=== PATIENT | male | born 1965 | race Hispanic/Latino ===

== ENCOUNTER 2021-05-02 13:34 | Inpatient (IN) | payer OTHER, SELFPAY ==
[2021-05-02] VITALS (100 sets, daily range): BP systolic 78–152; BP diastolic 43–89; PULSE 52–93; RESP 14–35; TEMP 36.4–39.4; O2SAT 92–99; BMI 43.5
--- NOTE | 2021-05-02 13:56 | DI.RAD.S_ITS ---
PROCEDURE: XR CHEST 1V INDICATIONS: suspected sepsis TECHNIQUE: One view of the chest was acquired. COMPARISON: None. FINDINGS: Surgical changes and devices: None. Lungs and pleura: Low lung volumes. Visible lung jasso are clear. No effusion or pneumothorax. Mediastinum: Heart size is accentuated by low lung volumes and is likely normal. Mediastinal contour is normal. Bones and chest wall: No suspicious bony lesions. Overlying soft tissues appear unremarkable. IMPRESSION: 1. Given low lung volumes, normal chest. Dictated by: Livia Da Silva M.D. on 05/02/2021 at 15:37 Approved by: Livia Da Silva M.D. on 05/02/2021 at 15:37
[2021-05-02] MEDS: ONDANSETRON 4 MG/2 ML INJ IV (14:27)
[2021-05-02] MEDS: SODIUM CHLORIDE 0.9% 1,000 ML 1000 ML IV (14:27)
--- NOTE | 2021-05-02 14:28 | DI.RAD.S_ITS ---
PROCEDURE: XR TIBIA FIBULA LT 2V INDICATIONS: r/o osteomyelitis TECHNIQUE: 2 views of the tibia and fibula were acquired. COMPARISON: None. FINDINGS: Bones: No fractures or dislocations. No suspicious bony lesions. Normal mineralization. No cortical erosions changes. Mild degenerative change at the knee and ankle. Soft tissues: No suspicious soft tissue calcifications or masses. IMPRESSION: No radiographic evidence of acute osteomyelitis. Dictated by: Livia Da Silva M.D. on 05/02/2021 at 15:39 Approved by: Livia Da Silva M.D. on 05/02/2021 at 15:40
--- NOTE | 2021-05-02 14:29 | ED.SKABFB ---
HPI - Skin/Abscess/Foreign Bdy <Marbin Nelson PA-C - Last Filed: 05/02/21 14:33> General Chief complaint: Skin/Abscess/Foreign Body Stated complaint: infection Time Seen by Provider: 05/02/21 14:18 Source: patient and family Mode of arrival: Wheelchair History of Present Illness HPI narrative: Patient is a 56-year-old male who presents to the ED complaining of left lower leg pain. He has had a previous infection in that leg where he was treated inpatient with IV vanc in the past. Patient describes an episode of sepsis as a result. Pain has increased in the left lower leg and redness and he is concerned that the infection has come back presents today for evaluation. No reported fever however although he has been taking some Tylenol for aches and pain. He did have some chills today. No reported nausea vomiting diarrhea cough congestion no recent trauma or fall or any other injury reported Related Data Home Medications Medication Instructions Recorded Confirmed lisinopril 20 mg tablet 20 mg PO DAILY 05/02/21 05/02/21 Allergies Allergy/AdvReac Type Severity Reaction Status Date / Time sulfamethoxazole Allergy Verified 05/02/21 18:11 [From Sulfamethoxazole-Trimethoprim] trimethoprim Allergy Verified 05/02/21 18:11 [From Sulfamethoxazole-Trimethoprim] Review of Systems <Marbin Nelson PA-C - Last Filed: 05/02/21 14:33> Review of Systems ROS Unobtainable: All systems reviewed & are unremarkable except as noted in HPI and below Constitutional Constitutional: Denies chills, Denies fatigue, Denies fever(s), Denies frequent falls, Denies lethargy and Denies weakness Eyes Eyes: Denies change in vision, Denies eye discharge, Denies irritation and Denies loss of vision ENT Ears, Nose, Mouth, and Throat: Denies change in voice, Denies dizziness, Denies neck pain, Denies sore throat and Denies throat swelling Cardiovascular Cardiovascular: Denies chest pain, Denies irregular heart rhythm, Denies lightheadedness, Denies palpitations, Denies dyspnea, Denies dyspnea on exertion and Denies orthopnea Respiratory Respiratory: Denies cough, Denies dyspnea, Denies dyspnea on exertion and Denies wheezing Gastrointestinal Gastrointestinal: Denies abdominal pain, Denies change in bowel habits, Denies diarrhea, Denies nausea and Denies vomiting Genitourinary Genitourinary: Denies hematuria, Denies flank pain, Denies urinary incontinence and Denies urinary urgency Musculoskeletal Musculoskeletal: Denies back pain, Reports muscle cramps, Denies muscle weakness, Reports myalgias, Denies neck pain, Denies numbness and Denies tingling Integumentary/Breasts Skin/Breast: Denies pruritus, Denies erythema, Denies rash and Denies wounds Neurologic Neurologic: Denies behavioral changes, Denies confusion, Denies dizziness, Denies frequent falls, Denies loss of vision, Denies numbness, Denies tingling and Denies weakness Psychiatric Psychiatric: Denies anxiety, Denies behavioral changes, Denies confusion, Denies depression, Denies homicidal ideation and Denies suicidal ideation Endocrine Endocrine: Denies fatigue, Denies flushing and Denies palpitations Hematologic/Lymphatic Hematologic/Lymphatic: Denies easy bruising Allergic/Immunologic Allergic/Immunologic: Denies urticaria, Denies throat swelling and Denies wheezing Patient History <Marbin Nelson PA-C - Last Filed: 05/02/21 14:33> Social History household members: spouse Exam <Marbin Nelson PA-C - Last Filed: 05/02/21 14:33> Initial Vital Signs Initial Vital Signs: Vital Signs Temperature 99.4 F 05/02/21 13:45 Pulse Rate 81 05/02/21 13:45 Respiratory Rate 20 05/02/21 13:45 Blood Pressure 136/68 05/02/21 13:45 Pulse Oximetry 99 05/02/21 13:45 Const General: cooperative, healthy appearing, comfortable and well developed Nutritional Appearance: average body habitus Orientation: Orientation [facility] Head: normal to inspection, normocephalic and atraumatic Ears: hearing grossly normal bilaterally and external ears normal Nose: external nose normal and nares normal Face and sinus: normal facial exam Resp Effort & Inspection: normal respiratory effort and able to speak in complete sentences Auscultation: clear to auscultation bilaterally Skin General: other (He has redness on the left lower leg from the knee to the ankle on the ante) Other: There does appear to be some redness along the anterior portion of the left lower leg. No evidence of any acute cellulitis skin is not warm to touch no discharge or any lesions. He does have sock line will have hair loss on both lower legs. No evidence of any edema distal pulses are good cap refills within normal limits <Miya Murrieta DO - Last Filed: 05/03/21 02:56> Initial Vital Signs Initial Vital Signs: Vital Signs Temperature 99.4 F 05/02/21 13:45 Pulse Rate 81 05/02/21 13:45 Respiratory Rate 20 05/02/21 13:45 Blood Pressure 136/68 05/02/21 13:45 Pulse Oximetry 99 05/02/21 13:45 <Miya Murrieta DO - Last Filed: 05/03/21 02:56> Central Line Placement Right IJ: Time Out Performed: Yes Patient Placed on Monitor/Pulse Ox: Yes Prep: mask, gown and gloves Central Line Prep: Chlorhexidine scrub and sterile drapes applied Local Anesthetic: lidocaine 1% Amount of anesthesia used (mL): 5 Ultrasound Used for Placement: Yes Central Line Lumen Inserted: triple Post Procedure: sutured in place, good blood return, all ports aspirated, flushed, capped and sterile dressing applied Post Procedure X-Ray: tip of catheter in good position Patient Tolerated Procedure: Well and No complications Procedural Sedation Consent signed: Yes Ketamine: IV Ketamine dose (mg): 135 Intraservice time/total sedation time (min): 19 ED Sedation Level: Moderate (Concious) Patient Tolerated Procedure: Well Complications: none Course <Marbin Nelson PA-C - Last Filed: 05/02/21 14:33> Orders Ordered: ED Orders 05/02/21 20:42 XR chest 1V Stat 05/02/21 21:03 Lactate (Lactic Acid) Stat 05/02/21 21:17 Troponin & CK Cardiac Panel Stat UA Complete [Urinalysis and Microscopic] Stat Urine Drug Screen, Rapid Stat Acetaminophen (Acetaminophen 325 Mg Tablet) 650 mg PO Q6HR [facility] Last Admin: 05/03/21 01:24 Dose: 650 mg Documented by: Admin: 05/03/21 01:15 Dose: Not Given Documented by: FAHAD Enoxaparin Sodium (Enoxaparin 40 Mg/0.4 Ml Syringe) 40 mg SUBCUT DAILY [facility] NOREPINEPHRINE BITARTRATE/D5W (Levophed) 4 mg in 250 mls @ 30 mls/hr IV TITRATE JESENIA; Protocol Last Titration: 05/03/21 01:22 Dose: 0 mcg/min, 0 mls/hr Documented by: Titration: 05/03/21 00:20 Dose: 1 mcg/min, 3.75 mls/hr Documented by: Titration: 05/02/21 22:10 Dose: 2 mcg/min, 7.5 mls/hr Documented by: Titration: 05/02/21 22:00 Dose: 3 mcg/min, 11.25 mls/hr Documented by: Admin: 05/02/21 19:42 Dose: 3 mcg/min, 11.25 mls/hr Documented by: LOBO Lactated Ringer's (Lactated Ringers) 1,000 mls @ 150 mls/hr IV CONT JESENIA Last Admin: 05/03/21 00:00 Dose: 150 mls/hr Documented by: FAHAD Ceftriaxone Sodium 1,000 mg/ (Sodium Chloride) 100 mls @ 200 mls/hr IV Q24H JESENIA Vancomycin HCl/Dextrose (Vancomycin) 1,500 mg in 300 mls @ 200 mls/hr IV Q8H JESENIA Last Admin: 05/03/21 01:29 Dose: 200 mls/hr Documented by: FAHAD Metoclopramide HCl (Metoclopramide 10 Mg/2 Ml Inj) 10 mg IV Q6HR PRN PRN Reason: Nausea And Vomiting Pantoprazole Sodium (Pantoprazole Dr 40 Mg Tablet) 40 mg PO 0700 JESENIA Tramadol HCl (Tramadol 50 Mg Tablet) 50 mg PO Q4H PRN PRN Reason: Pain, Moderate (4-6) Vancomycin HCl (Vancomycin Per Pharmacy) 1 request MISC NOW ONE Stop: 05/02/21 22:56 Discontinued Medications Sodium Chloride (Normal Saline 0.9%) 1,000 mls @ 1,000 mls/hr IV BOLUS ONE Stop: 05/02/21 14:55 Last Infusion: 05/02/21 15:27 Dose: 0 mls/hr Documented by: Admin: 05/02/21 14:27 Dose: 1,000 mls/hr Documented by: MARIOLA Sodium Chloride (Normal Saline 0.9%) 4,014.3 mls @ 1,338.1 mls/hr 30 ml/kg infuse over 3 hr (4014.3 ml) IV NOW ONE Stop: 05/02/21 19:13 Last Admin: 05/02/21 16:24 Dose: Not Given Documented by: LOBO Sodium Chloride (Normal Saline 0.9%) 2,000 mls @ 1,000 mls/hr IV BOLUS ONE Stop: 05/02/21 18:20 Last Infusion: 05/02/21 22:00 Dose: 0 mls/hr Documented by: Admin: 05/02/21 15:30 Dose: 1,000 mls/hr Documented by: LOBO Vancomycin HCl/Dextrose (Vancomycin) 1,500 mg in 300 mls @ 200 mls/hr IV NOW ONE Stop: 05/02/21 19:18 Last Infusion: 05/02/21 20:17 Dose: 0 mls/hr Documented by: Admin: 05/02/21 18:07 Dose: 200 mls/hr Documented by: LOBO Ceftriaxone Sodium 2,000 mg/ (Sodium Chloride) 100 mls @ 200 mls/hr IV NOW ONE Stop: 05/02/21 21:04 Last Infusion: 05/02/21 22:43 Dose: 0 mls/hr Documented by: Admin: 05/02/21 22:09 Dose: 200 mls/hr Documented by: FAHAD Ibuprofen (Ibuprofen 400 Mg Tablet) 800 mg PO NOW ONE Stop: 05/02/21 15:34 Last Admin: 05/02/21 15:46 Dose: 800 mg Documented by: LOBO Ondansetron HCl (Ondansetron 4 Mg/2 Ml Inj) 4 mg IV NOW ONE Stop: 05/02/21 13:57 Last Admin: 05/02/21 14:27 Dose: 4 mg Documented by: MARIOLA Vital Signs Vital signs: Vital Signs - 8 hr 05/02/21 18:50 05/02/21 19:00 05/02/21 19:06 Pulse Rate 61 59 L 58 L Respiratory Rate 19 25 H 25 H Blood Pressure 78/50 L 86/54 L Pulse Oximetry 96 96 95 05/02/21 19:10 05/02/21 19:20 05/02/21 19:30 Pulse Rate 58 L 61 59 L Respiratory Rate 18 16 19 Blood Pressure 91/52 L 93/55 L Pulse Oximetry 96 96 95 05/02/21 19:40 05/02/21 20:26 05/02/21 20:28 Pulse Rate 61 58 L 57 L Respiratory Rate 20 23 16 Blood Pressure 96/54 L 107/61 146/82 H Pulse Oximetry 95 98 99 05/02/21 20:30 05/02/21 20:32 05/02/21 20:34 Pulse Rate 64 68 71 Respiratory Rate 23 24 30 H Blood Pressure 151/89 H 152/87 H 144/86 H Pulse Oximetry 97 99 99 05/02/21 20:36 05/02/21 20:38 05/02/21 20:40 Pulse Rate 72 69 67 Respiratory Rate 24 27 H 22 Blood Pressure 139/80 142/70 H 129/66 Pulse Oximetry 98 98 98 05/02/21 20:42 05/02/21 20:44 05/02/21 20:46 Pulse Rate 66 65 64 Respiratory Rate 22 16 22 Blood Pressure 129/66 128/69 127/72 Pulse Oximetry 99 98 98 05/02/21 20:47 05/02/21 20:48 05/02/21 20:50 Pulse Rate 61 54 L 59 L Respiratory Rate 20 16 24 Blood Pressure 135/78 130/79 Pulse Oximetry 98 98 05/02/21 20:52 05/02/21 20:54 05/02/21 20:56 Pulse Rate 52 L 54 L 57 L Respiratory Rate 24 24 22 Blood Pressure 126/78 125/75 126/75 Pulse Oximetry 98 98 98 05/02/21 20:58 05/02/21 21:00 05/02/21 21:02 Pulse Rate 58 L 57 L 54 L Respiratory Rate 24 22 20 Blood Pressure 121/73 122/75 117/72 Pulse Oximetry 98 98 98 05/02/21 21:04 05/02/21 21:06 05/02/21 21:08 Pulse Rate 59 L 54 L 52 L Respiratory Rate 22 22 23 Blood Pressure 117/63 116/65 120/64 Pulse Oximetry 98 98 98 05/02/21 21:10 05/02/21 21:12 Pulse Rate 57 L 59 L Respiratory Rate 21 21 Blood Pressure 119/66 119/64 Pulse Oximetry 98 97 <Miya Murrieta, DO - Last Filed: 05/03/21 02:56> Orders Ordered: ED Orders 05/02/21 20:42 XR chest 1V Stat 05/02/21 21:03 Lactate (Lactic Acid) Stat 05/02/21 21:17 Troponin & CK Cardiac Panel Stat UA Complete [Urinalysis and Microscopic] Stat Urine Drug Screen, Rapid Stat Acetaminophen (Acetaminophen 325 Mg Tablet) 650 mg PO Q6HR [facility] Last Admin: 05/03/21 01:24 Dose: 650 mg Documented by: Admin: 05/03/21 01:15 Dose: Not Given Documented by: FAHAD Enoxaparin Sodium (Enoxaparin 40 Mg/0.4 Ml Syringe) 40 mg SUBCUT DAILY [facility] NOREPINEPHRINE BITARTRATE/D5W (Levophed) 4 mg in 250 mls @ 30 mls/hr IV TITRATE JESENIA; Protocol Last Titration: 05/03/21 01:22 Dose: 0 mcg/min, 0 mls/hr Documented by: Titration: 05/03/21 00:20 Dose: 1 mcg/min, 3.75 mls/hr Documented by: Titration: 05/02/21 22:10 Dose: 2 mcg/min, 7.5 mls/hr Documented by: Titration: 05/02/21 22:00 Dose: 3 mcg/min, 11.25 mls/hr Documented by: Admin: 05/02/21 19:42 Dose: 3 mcg/min, 11.25 mls/hr Documented by: LOBO Lactated Ringer's (Lactated Ringers) 1,000 mls @ 150 mls/hr IV CONT [facility] Last Admin: 05/03/21 00:00 Dose: 150 mls/hr Documented by: FAHAD Ceftriaxone Sodium 1,000 mg/ (Sodium Chloride) 100 mls @ 200 mls/hr IV Q24H JESENIA Vancomycin HCl/Dextrose (Vancomycin) 1,500 mg in 300 mls @ 200 mls/hr IV Q8H [facility] Last Admin: 05/03/21 01:29 Dose: 200 mls/hr Documented by: FAHAD Metoclopramide HCl (Metoclopramide 10 Mg/2 Ml Inj) 10 mg IV Q6HR PRN PRN Reason: Nausea And Vomiting Pantoprazole Sodium (Pantoprazole Dr 40 Mg Tablet) 40 mg PO 0700 JESENIA Tramadol HCl (Tramadol 50 Mg Tablet) 50 mg PO Q4H PRN PRN Reason: Pain, Moderate (4-6) Vancomycin HCl (Vancomycin Per Pharmacy) 1 request MISC NOW ONE Stop: 05/02/21 22:56 Discontinued Medications Sodium Chloride (Normal Saline 0.9%) 1,000 mls @ 1,000 mls/hr IV BOLUS ONE Stop: 05/02/21 14:55 Last Infusion: 05/02/21 15:27 Dose: 0 mls/hr Documented by: Admin: 05/02/21 14:27 Dose: 1,000 mls/hr Documented by: MARIOLA Sodium Chloride (Normal Saline 0.9%) 4,014.3 mls @ 1,338.1 mls/hr 30 ml/kg infuse over 3 hr (4014.3 ml) IV NOW ONE Stop: 05/02/21 19:13 Last Admin: 05/02/21 16:24 Dose: Not Given Documented by: LOBO Sodium Chloride (Normal Saline 0.9%) 2,000 mls @ 1,000 mls/hr IV BOLUS ONE Stop: 05/02/21 18:20 Last Infusion: 05/02/21 22:00 Dose: 0 mls/hr Documented by: Admin: 05/02/21 15:30 Dose: 1,000 mls/hr Documented by: LOBO Vancomycin HCl/Dextrose (Vancomycin) 1,500 mg in 300 mls @ 200 mls/hr IV NOW ONE Stop: 05/02/21 19:18 Last Infusion: 05/02/21 20:17 Dose: 0 mls/hr Documented by: Admin: 05/02/21 18:07 Dose: 200 mls/hr Documented by: LBOO Ceftriaxone Sodium 2,000 mg/ (Sodium Chloride) 100 mls @ 200 mls/hr IV NOW ONE Stop: 05/02/21 21:04 Last Infusion: 05/02/21 22:43 Dose: 0 mls/hr Documented by: Admin: 05/02/21 22:09 Dose: 200 mls/hr Documented by: FAHAD Ibuprofen (Ibuprofen 400 Mg Tablet) 800 mg PO NOW ONE Stop: 05/02/21 15:34 Last Admin: 05/02/21 15:46 Dose: 800 mg Documented by: LOBO Ondansetron HCl (Ondansetron 4 Mg/2 Ml Inj) 4 mg IV NOW ONE Stop: 05/02/21 13:57 Last Admin: 05/02/21 14:27 Dose: 4 mg Documented by: MARIOLA Vital Signs Vital signs: Vital Signs - 8 hr 05/02/21 18:50 05/02/21 19:00 05/02/21 19:06 Pulse Rate 61 59 L 58 L Respiratory Rate 19 25 H 25 H Blood Pressure 78/50 L 86/54 L Pulse Oximetry 96 96 95 05/02/21 19:10 05/02/21 19:20 05/02/21 19:30 Pulse Rate 58 L 61 59 L Respiratory Rate 18 16 19 Blood Pressure 91/52 L 93/55 L Pulse Oximetry 96 96 95 05/02/21 19:40 05/02/21 20:26 05/02/21 20:28 Pulse Rate 61 58 L 57 L Respiratory Rate 20 23 16 Blood Pressure 96/54 L 107/61 146/82 H Pulse Oximetry 95 98 99 05/02/21 20:30 05/02/21 20:32 05/02/21 20:34 Pulse Rate 64 68 71 Respiratory Rate 23 24 30 H Blood Pressure 151/89 H 152/87 H 144/86 H Pulse Oximetry 97 99 99 05/02/21 20:36 05/02/21 20:38 05/02/21 20:40 Pulse Rate 72 69 67 Respiratory Rate 24 27 H 22 Blood Pressure 139/80 142/70 H 129/66 Pulse Oximetry 98 98 98 05/02/21 20:42 05/02/21 20:44 05/02/21 20:46 Pulse Rate 66 65 64 Respiratory Rate 22 16 22 Blood Pressure 129/66 128/69 127/72 Pulse Oximetry 99 98 98 05/02/21 20:47 05/02/21 20:48 05/02/21 20:50 Pulse Rate 61 54 L 59 L Respiratory Rate 20 16 24 Blood Pressure 135/78 130/79 Pulse Oximetry 98 98 05/02/21 20:52 05/02/21 20:54 05/02/21 20:56 Pulse Rate 52 L 54 L 57 L Respiratory Rate 24 24 22 Blood Pressure 126/78 125/75 126/75 Pulse Oximetry 98 98 98 05/02/21 20:58 05/02/21 21:00 05/02/21 21:02 Pulse Rate 58 L 57 L 54 L Respiratory Rate 24 22 20 Blood Pressure 121/73 122/75 117/72 Pulse Oximetry 98 98 98 05/02/21 21:04 05/02/21 21:06 05/02/21 21:08 Pulse Rate 59 L 54 L 52 L Respiratory Rate 22 22 23 Blood Pressure 117/63 116/65 120/64 Pulse Oximetry 98 98 98 05/02/21 21:10 05/02/21 21:12 Pulse Rate 57 L 59 L Respiratory Rate 21 Blood Pressure 119/66 119/64 Pulse Oximetry 98 97 MDM - Skin/Abscess/Foreign Bdy <Marbin Nelson PA-C - Last Filed: 05/02/21 14:33> Lab Data Result diagrams: 05/02/21 14:20 05/02/21 14:20 Labs: Lab Results 05/02/21 05/02/21 05/02/21 Range/Units 14:20 14:20 14:20 WBC 9.5 (4.5-11.0) X10^3/uL RBC 4.84 (4.5-5.9) X10^6/uL Hgb 15.1 (13.5-17.5) g/dL Hct 43.5 (41-53) % MCV 89.8 (80-100) fL MCH 31.1 (26-34) PG MCHC 34.7 (30-36) % RDW 13.4 (11.6-14.8) % Plt Count 174 (150-400) X10^3/uL Neut % (Auto) 82.8 H (50-75) % Lymph % (Auto) 7.3 L (25-40) % [place] % (Auto) 9.3 (3-14) % Eos % (Auto) 0.3 L (2-4) % Baso % (Auto) 0.3 (0-2) % Neut # (Auto) 7900 H (0049-9787) /uL Lymph # (Auto) 700 L (6051-5951) /uL [place] # (Auto) 900 (0-900) /uL Eos # (Auto) 0 (0-450) /uL Baso # (Auto) 0 (0-100) /uL Sodium 134 L (137-145) mmol/L Potassium 4.5 (3.4-5.1) mmol/L Chloride 101 (98-107) mmol/L Carbon Dioxide 25 (22-32) mmol/L BUN 15 (9-20) mg/dL Creatinine 0.89 (0.66-1.25) mg/dL Estimated GFR > 60.0 (>60) mL/min BUN/Creatinine Ratio 16.9 (6-22) Glucose 104 H (70-100) mg/dL Lactate 2.2 H (0.7-2.1) mmol/L Calcium 9.2 (8.4-10.2) mg/dL Total Bilirubin 0.7 (0.2-1.3) mg/dL AST 50 (17-59) IU/L ALT 45 (<50) IU/L Alkaline Phosphatase 43 (38-126) U/L Total Protein 8.5 H (6.3-8.2) g/dL Albumin 4.6 (3.5-5.0) g/dL Globulin 3.9 (1.7-4.1) g/dL Albumin/Globulin Ratio 1.2 (1.0-2.8) Lipase 141 (23-300) U/L Procalcitonin 0.24 (<0.5) ng/mL SARS-CoV-2 (PCR) (Negative) 05/02/21 05/02/21 05/02/21 Range/Units 16:11 16:37 21:03 WBC (4.5-11.0) X10^3/uL RBC (4.5-5.9) X10^6/uL Hgb (13.5-17.5) g/dL Hct (41-53) % MCV (80-100) fL MCH (26-34) PG MCHC (30-36) % RDW (11.6-14.8) % Plt Count (150-400) X10^3/uL Neut % (Auto) (50-75) % Lymph % (Auto) (25-40) % [place] % (Auto) (3-14) % Eos % (Auto) (2-4) % Baso % (Auto) (0-2) % Neut # (Auto) (2156-6962) /uL Lymph # (Auto) (2804-9871) /uL [place] # (Auto) (0-900) /uL Eos # (Auto) (0-450) /uL Baso # (Auto) (0-100) /uL Sodium (137-145) mmol/L Potassium (3.4-5.1) mmol/L Chloride (98-107) mmol/L Carbon Dioxide (22-32) mmol/L BUN (9-20) mg/dL Creatinine (0.66-1.25) mg/dL Estimated GFR (>60) mL/min BUN/Creatinine Ratio (6-22) Glucose (70-100) mg/dL Lactate 1.5 1.2 (0.7-2.1) mmol/L Calcium (8.4-10.2) mg/dL Total Bilirubin (0.2-1.3) mg/dL AST (17-59) IU/L ALT (<50) IU/L Alkaline Phosphatase (38-126) U/L Total Protein (6.3-8.2) g/dL Albumin (3.5-5.0) g/dL Globulin (1.7-4.1) g/dL Albumin/Globulin Ratio (1.0-2.8) Lipase (23-300) U/L Procalcitonin (<0.5) ng/mL SARS-CoV-2 (PCR) Negative (Negative) Urine Dip Bedside Urine Glucose Negative Bedside Urine Bilirubin - Negative Bedside Urine Ketone - Negative Urine Specific [place] 1.015 Bedside Urine Occult Blood - Negative Bedside Urine pH 8 Bedside Urine Protein - Negative Bedside Urine Urobilinogen - Negative Bedside Urine Nitrite - Negative Bedside Urine Leukocytes - Negative Esterase <Miya Murrieta, DO - Last Filed: 05/03/21 02:56> Lab Data Labs: Lab Results 05/02/21 05/02/21 05/02/21 Range/Units 14:20 14:20 14:20 WBC 9.5 (4.5-11.0) X10^3/uL RBC 4.84 (4.5-5.9) X10^6/uL Hgb 15.1 (13.5-17.5) g/dL Hct 43.5 (41-53) % MCV 89.8 (80-100) fL MCH 31.1 (26-34) PG MCHC 34.7 (30-36) % RDW 13.4 (11.6-14.8) % Plt Count 174 (150-400) X10^3/uL Neut % (Auto) 82.8 H (50-75) % Lymph % (Auto) 7.3 L (25-40) % [place] % (Auto) 9.3 (3-14) % Eos % (Auto) 0.3 L (2-4) % Baso % (Auto) 0.3 (0-2) % Neut # (Auto) 7900 H (5086-7212) /uL Lymph # (Auto) 700 L (2756-2315) /uL [place] # (Auto) 900 (0-900) /uL Eos # (Auto) 0 (0-450) /uL Baso # (Auto) 0 (0-100) /uL Sodium 134 L (137-145) mmol/L Potassium 4.5 (3.4-5.1) mmol/L Chloride 101 (98-107) mmol/L Carbon Dioxide 25 (22-32) mmol/L BUN 15 (9-20) mg/dL Creatinine 0.89 (0.66-1.25) mg/dL Estimated GFR > 60.0 (>60) mL/min BUN/Creatinine Ratio 16.9 (6-22) Glucose 104 H (70-100) mg/dL Lactate 2.2 H (0.7-2.1) mmol/L Calcium 9.2 (8.4-10.2) mg/dL Total Bilirubin 0.7 (0.2-1.3) mg/dL AST 50 (17-59) IU/L ALT 45 (<50) IU/L Alkaline Phosphatase 43 (38-126) U/L Total Protein 8.5 H (6.3-8.2) g/dL Albumin 4.6 (3.5-5.0) g/dL Globulin 3.9 (1.7-4.1) g/dL Albumin/Globulin Ratio 1.2 (1.0-2.8) Lipase 141 (23-300) U/L Procalcitonin 0.24 (<0.5) ng/mL SARS-CoV-2 (PCR) (Negative) 05/02/21 05/02/21 05/02/21 Range/Units 16:11 16:37 21:03 WBC (4.5-11.0) X10^3/uL RBC (4.5-5.9) X10^6/uL Hgb (13.5-17.5) g/dL Hct (41-53) % MCV (80-100) fL MCH (26-34) PG MCHC (30-36) % RDW (11.6-14.8) % Plt Count (150-400) X10^3/uL Neut % (Auto) (50-75) % Lymph % (Auto) (25-40) % [place] % (Auto) (3-14) % Eos % (Auto) (2-4) % Baso % (Auto) (0-2) % Neut # (Auto) (8734-3228) /uL Lymph # (Auto) (2800-5079) /uL [place] # (Auto) (0-900) /uL Eos # (Auto) (0-450) /uL Baso # (Auto) (0-100) /uL Sodium (137-145) mmol/L Potassium (3.4-5.1) mmol/L Chloride (98-107) mmol/L Carbon Dioxide (22-32) mmol/L BUN (9-20) mg/dL Creatinine (0.66-1.25) mg/dL Estimated GFR (>60) mL/min BUN/Creatinine Ratio (6-22) Glucose (70-100) mg/dL Lactate 1.5 1.2 (0.7-2.1) mmol/L Calcium (8.4-10.2) mg/dL Total Bilirubin (0.2-1.3) mg/dL AST (17-59) IU/L ALT (<50) IU/L Alkaline Phosphatase (38-126) U/L Total Protein (6.3-8.2) g/dL Albumin (3.5-5.0) g/dL Globulin (1.7-4.1) g/dL Albumin/Globulin Ratio (1.0-2.8) Lipase (23-300) U/L Procalcitonin (<0.5) ng/mL SARS-CoV-2 (PCR) Negative (Negative) Urine Dip Bedside Urine Glucose Negative Bedside Urine Bilirubin - Negative Bedside Urine Ketone - Negative Urine Specific [place] 1.015 Bedside Urine Occult Blood - Negative Bedside Urine pH 8 Bedside Urine Protein - Negative Bedside Urine Urobilinogen - Negative Bedside Urine Nitrite - Negative Bedside Urine Leukocytes - Negative Esterase Imaging Data Chest x-ray: Radiologist's Impression: PROCEDURE:? XR CHEST 1V ? INDICATIONS:? suspected sepsis ? TECHNIQUE:? One view of the chest was acquired.? ? COMPARISON:? None. ? FINDINGS:? ? Surgical changes and devices:? None.? ? Lungs and pleura:? Low lung volumes.? Visible lung jasso are clear.? No effusion or pneumothorax. ? Mediastinum:? Heart size is accentuated by low lung volumes and is likely normal.? Mediastinal contour is normal. ? Bones and chest wall:? No suspicious bony lesions.? Overlying soft tissues appear unremarkable.? ? IMPRESSION:? ? 1. Given low lung volumes, normal chest.? ? ? Dictated by: Livia Da Silva M.D. on 05/02/2021 at 15:37 ? ? Extremity x-ray #1: Radiologist's Impression: PROCEDURE:? XR TIBIA FIBULA LT 2V ? INDICATIONS:? r/o osteomyelitis ? TECHNIQUE:? 2 views of the tibia and fibula were acquired.? ? COMPARISON:? None. ? FINDINGS:? ? Bones:? No fractures or dislocations.? No suspicious bony lesions.? Normal mineralization.? No cortical erosions changes.? Mild degenerative change at the knee and ankle. ? Soft tissues:? No suspicious soft tissue calcifications or masses.? ? IMPRESSION:? No radiographic evidence of acute osteomyelitis.? ? ? Dictated by: Livia Da Silva M.D. on 05/02/2021 at 15:39 ? CXR #2: Radiologist's Impression: PROCEDURE:? XR CHEST 1V ? INDICATIONS:? central line placement ? TECHNIQUE:? One view of the chest was acquired.? ? COMPARISON:? [facility], , XR CHEST 1V, 05/02/2021, 14:24. ? FINDINGS:? ? Surgical changes and devices:? There is a new right internal jugular catheter with the tip projecting over the superior vena cava. ? Lungs and pleura:? No definite pneumothorax.? No pleural effusions.? There is motion artifact limiting evaluation of the lungs.? No definite acute consolidation. ? Mediastinum:? Mediastinal contours appear prominent likely due to low lung volumes and portable technique.? Heart size is enlarged. ? Bones and chest wall:? No suspicious bony lesions.? Overlying soft tissues appear unremarkable.? ? IMPRESSION:? ? 1. No definite pneumothorax. ? ? Dictated by: Gilles Pandey M.D. on 05/02/2021 at 21:32 ? ? ECG Data Interpretation: Normal sinus rhythm rate 81 MT interval 170 QRS [address] changes, no priors MDM Narrative Medical decision making narrative: I was asked to get involved is when patient was attempted to be admitted is to the hospitalist and realized that patient's blood pressure has been low as and requested central line be placed. I have seen and evaluated patient myself. He overall appears weak and lethargic but is awake alert responsive. Left lower extremity is mildly erythematous and swollen slightly tender to touch with a distal pedal pulse. As the patient says he has previously had infections like this in past in fact he was admitted at [facility]. He says his blood pressures were in the 80s at that time and he was given IV fluids and closely monitored. The patient's blood work overall appears well however patient himself does not appear well and he is becoming more hypotensive during his stay despite IV fluid. Patient actually qualifies as septic shock. No infection in urine is clear as well. He has no other signs or symptoms. Patient is given a dose of vancomycin I have also ordered a dose of Rocephin. His central line is placed. Patient is extremely anxious and has fear of needles ketamine is used for procedure sedation for central line placement. Patient tolerated procedure very well and central line was placed without issue. Patient initially was started on peripheral Levophed and 1 central line was placed and was started on the central line. Discussed case with Remedios ALBA who is updated patient's symptoms test results increase with ICU admission. <Miya Murrieta, - Last Filed: 05/03/21 02:56> Critical Care Time Critical Care Time: Yes Total Critical Care Time: 30 Attestation: The high probability of a clinically significant, sudden or life threatening deterioration of the [cardiovascular] system(s) required my full and direct attention, intervention and personal management. The aggregate critical care time was 30 minutes. This time is in addition to time spent performing reported procedures but includes the following: [x] Data Review and interpretation [x] Patient assessment and monitoring of vital signs [x] Documentation [x] Medication orders and management Discharge Plan Departure Patient Disposition: Admitted As Inpatient Clinical Impression: Septic shock, Left leg cellulitis Admit Date/Time: 05/02/21 21:12 Admit Provider: Meenu Garg
[2021-05-02 14:32] LABS: Add Manual Diff / Slide Review NO; Basophils Absolute Auto 0 /uL (0-100); Basophils Percent Auto 0.3 % (0-2); Eosinophils Absolute Auto 0 /uL (0-450); Eosinophils Percent Auto 0.3 % (2-4); Hematocrit 43.5 % (41-53); Hemoglobin 15.1 g/dL (13.5-17.5); Lymphocytes Absolute Auto 700 /uL (1100-4500); Lymphocytes Percent Auto 7.3 % (25-40); Mean Corpuscular HGB Conc 34.7 % (30-36); Mean Corpuscular Hemoglobin 31.1 PG (26-34); Mean Corpuscular Volume 89.8 fL (80-100); Monocytes Absolute Auto 900 /uL (0-900); Monocytes Percent Auto 9.3 % (3-14); Neutrophils Absolute Auto 7900 /uL (1500-7000); Neutrophils Percent Auto 82.8 % (50-75); Platelet Count 174 X10^3/uL (150-400); Red Blood Cell Count 4.84 X10^6/uL (4.5-5.9); Red Cell Distribution Width 13.4 % (11.6-14.8); White Blood Cell Count 9.5 X10^3/uL (4.5-11.0)
[2021-05-02 14:42] LABS: Lactate (Lactic Acid) 2.2 mmol/L (0.7-2.1)
[2021-05-02 14:43] LABS: Alanine Aminotransferase 45 IU/L (<50); Albumin 4.6 g/dL (3.5-5.0); Albumin Globulin Ratio 1.2 (1.0-2.8); Alkaline Phosphatase 43 U/L (38-126); Aspartate Aminotransferase 50 IU/L (17-59); BUN Creatinine Ratio 16.9 (6-22); Bilirubin Total 0.7 mg/dL (0.2-1.3); Blood Urea Nitrogen 15 mg/dL (9-20); Calcium 9.2 mg/dL (8.4-10.2); Carbon Dioxide 25 mmol/L (22-32); Chloride 101 mmol/L (98-107); Estimated Glomerular Filt Rate > 60.0 mL/min (>60); Globulin 3.9 g/dL (1.7-4.1); Glucose 104 mg/dL (70-100); HEMOLYSIS < 15 (0-50); Lipase 141 U/L (23-300); Potassium 4.5 mmol/L (3.4-5.1); Sodium 134 mmol/L (137-145); Total Protein 8.5 g/dL (6.3-8.2)
[2021-05-02 14:59] LABS: Procalcitonin 0.24 ng/mL (<0.5)
[2021-05-02] MEDS: SODIUM CHLORIDE 0.9% 2,000 ML 1000 ML IV (15:30)
[2021-05-02] MEDS: IBUPROFEN 400 MG TABLET 800 MG PO (15:46)
[2021-05-02 16:26] LABS: Reflexed Lactate in 2 Hours Y
[2021-05-02 16:41] LABS: COVID19 -Nasal RAPID Negative (Negative)
[2021-05-02 16:52] LABS: Lactate 2HR (Lactic Acid Rflx) 1.5 mmol/L (0.7-2.1)
[2021-05-02] MEDS: VANCOMYCIN 1,500 MG/300 ML PIGGYBACK 200 MG IV (18:07)
[2021-05-02] MEDS: NOREPINEPHRINE BITARTRATE/D5W 4 MG/250 ML PLAST..BAG 8 MG IV (19:00)
[2021-05-02] MEDS: NOREPINEPHRINE BITARTRATE/D5W 4 MG/250 ML PLAST..BAG 11.25 MG IV (19:42)
[2021-05-02] MEDS: KETAMINE 500 MG/5 ML INJ (20:16)
--- NOTE | 2021-05-02 20:42 | DI.RAD.S_ITS ---
PROCEDURE: XR CHEST 1V INDICATIONS: central line placement TECHNIQUE: One view of the chest was acquired. COMPARISON: [facility], , XR CHEST 1V, 05/02/2021, 14:24. FINDINGS: Surgical changes and devices: There is a new right internal jugular catheter with the tip projecting over the superior vena cava. Lungs and pleura: No definite pneumothorax. No pleural effusions. There is motion artifact limiting evaluation of the lungs. No definite acute consolidation. Mediastinum: Mediastinal contours appear prominent likely due to low lung volumes and portable technique. Heart size is enlarged. Bones and chest wall: No suspicious bony lesions. Overlying soft tissues appear unremarkable. IMPRESSION: 1. No definite pneumothorax. Dictated by: Gilles Pandey M.D. on 05/02/2021 at 21:32 Approved by: Gilles Pandey M.D. on 05/02/2021 at 21:42
[2021-05-02 21:21] LABS: Lactate (Lactic Acid) 1.2 mmol/L (0.7-2.1)
[2021-05-02 21:27] LABS: UR Morphine/Opiate cutoff 300 Negative (Negative); Ur Creatinine Normal (Normal); Ur Specific Gravity Normal (Normal); Urine Amphetamines Negative (Negative); Urine Barbiturates Negative (Negative); Urine Benzodiazepines Negative (Negative); Urine Cocaine Negative (Negative); Urine MDMA Negative (Negative); Urine Methadone Negative (Negative); Urine Methamphetamines Negative (Negative); Urine Oxycodone Negative (Negative); Urine Phencyclidine Negative (Negative); Urine Tetrahydrocannabinol Negative (Negative); Urine Tricyclic Antidepressant Negative (Negative); Urine pH Normal (Normal)
[2021-05-02 21:32] LABS: Appearance Urine UA CLEAR; Bilirubin Urine UA NEGATIVE (NEGATIVE); Color Urine UA YELLOW; Glucose Urine UA NEGATIVE (Negative); Ketones Urine UA NEGATIVE (NEGATIVE); Leukocyte Esterase Urine UA NEGATIVE (NEGATIVE); Nitrite Urine UA NEGATIVE (Negative); Occult Blood Urine UA NEGATIVE (Negative); Protein Urine UA NEGATIVE (Negative); Specific Gravity Urine UA <=1.005 (1.000-1.035); Urobilinogen Urine UA 0.2 E.U./dL (0.2); pH Urine UA 6.5 (4.5-8.0)
[2021-05-02 21:33] LABS: Bacteria Urine None Seen; Culture Indicated Urine Cult Not Indicated; RBC Urine None Seen (0-5/HPF); Squamous Epithelial Cell Urine 0-1 /HPF (0-5/HPF); Urine Comments Microscopic Normal; WBC Urine None Seen (0-5/HPF)
[2021-05-02 21:40] LABS: Creatine Kinase 295 U/L (55-170)
[2021-05-02 21:53] LABS: Troponin I < 0.012 ng/mL (0.01-0.034)
[2021-05-02 21:56] LABS: CKMB % Relative Index 0.3 % (1.5-5.0); Creatine Kinase MB 0.74 ng/mL (<2.37)
[2021-05-02] MEDS: cefTRIAXone 2,000 MG in SODIUM CHLORIDE 0.9% 100 ML 200 ML IV (22:09)
--- NOTE | 2021-05-02 22:57 | PM.HP.1 ---
History of Present Illness History of Present Illness Date Patient Seen: 05/02/21 Time Patient Seen: 22:57 Chief complaint: infection Narrative: Terrance Cooper is a 56 y.o. male visiting from [place] who developed lower left leg pain and redness in that area. He states he was out hiking around and felt something sting him in the back of the leg that he felt might have been a piece of twig or branch. The patient is concerned because he has a history of developing sepsis and being hospitalized at [facility] in February of this year and being treated for the same thing. 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 He denies fever sweats or chills though per the ED was taking Tylenol for aches and pains, he did endorse having chills today, denies shortness of breath, chest pain, nausea or vomiting, dysuria, diarrhea constipation. In the emergency department the patient was initiated on antibiotics and during that time his blood pressure dropped precipitously low. After repeated boluses a decision was made to place a central line into the patient and required ketamine for sedation. He was eventually put on a norepinephrine drip and admitted to the ICU. About mid evening the patient was taken off the Levophed drip due to his blood pressure normalizing. X-ray was negative for any acute cardiopulmonary process. x-ray of the tib him did not identify any fractures, dislocations, soft tissue masses or abscesses or evidence of acute osteomyelitis. Repeat chest x-ray to verify central line was negative for any pneumothorax or abnormalities. Patient's T-max was 103?. Blood pressure is currently 140/64, heart rate 61, respiratory rate 23, oxygen saturation of 97% on room air, he weighs 140 kg with a BMI of 43.5. Does not have white count, D-dimer is mildly elevated at 803 however hit falls within the range of a possible DVT sodium 134, glucose 104, total CK was 295, is a normal troponin, procalcitonin was 0.24, UA was negative for UTI, MRSA is negative, and COVID-19 PCR is negative. Patient History Medical History (Updated 05/03/21 @ 04:22 by ANJALI Kenney) Abdominal aortic aneurysm Aortic dissection Essential hypertension History of pulmonary embolism Low HDL (under 40) Morbid obesity with BMI of 40.0-44.9, adult Surgical History (Updated 05/03/21 @ 04:22 by ANJALI Kenney) History of abdominal aortic aneurysm repair Family & Social History Family History (Updated 05/03/21 @ 04:27 by ANJALI Kenney) Mother Pancreatic cancer Father Vascular disease Son PTSD (post-traumatic stress disorder) Social History: household members spouse Prior Living Arrangements House Safety & Behavioral: Feels Safe in Current No Environment Been Physically Hurt or No Threatened By a Person Suicidal Ideation Description None Suicide Plan Description No Plan Tobacco & Substance use: Substance Use Type does not use Comment: Patient's father's side of the family who are from [facility] are stated to have significant vascular issues. Meds Home Medications and Allergies Home Medications Medication Instructions Recorded Confirmed Type lisinopril 20 mg tablet 20 mg PO DAILY 05/02/21 05/02/21 History Allergies Allergy/AdvReac Type Severity Reaction Status Date / Time sulfamethoxazole Allergy Verified 05/02/21 18:11 [From Sulfamethoxazole-Trimethoprim] trimethoprim Allergy Verified 05/02/21 18:11 [From Sulfamethoxazole-Trimethoprim] Review of Systems Review of Systems ROS: Yes All systems reviewed with the patient and are negative except as otherwise documented Exam Vital Signs (past 8 hours): - 05/02/21 15:00 05/02/21 15:14 05/02/21 15:15 Temperature Pulse Rate 78 88 77 Respiratory Rate Blood Pressure 86/54 L 88/55 L Pulse Oximetry 97 98 97 05/02/21 15:21 05/02/21 15:26 05/02/21 15:30 Temperature 103 F H Pulse Rate 77 76 79 Respiratory Rate 35 H 14 15 Blood Pressure 78/43 L 90/61 Pulse Oximetry 97 98 97 05/02/21 15:32 05/02/21 15:41 05/02/21 15:45 Temperature Pulse Rate 78 78 79 Respiratory Rate 16 24 19 Blood Pressure 91/52 L 119/57 L 102/51 L Pulse Oximetry 98 97 97 05/02/21 15:46 05/02/21 15:50 05/02/21 16:00 Temperature 103 F H Pulse Rate 84 81 Respiratory Rate 25 H 27 H Blood Pressure 96/56 L Pulse Oximetry 98 96 05/02/21 16:08 05/02/21 16:10 05/02/21 16:15 Temperature Pulse Rate 77 81 79 Respiratory Rate 16 24 19 Blood Pressure 111/57 L 117/57 L Pulse Oximetry 97 96 96 05/02/21 16:20 05/02/21 16:30 05/02/21 16:31 Temperature Pulse Rate 84 81 79 Respiratory Rate 24 22 15 Blood Pressure 120/56 L Pulse Oximetry 97 96 96 05/02/21 16:40 05/02/21 16:45 05/02/21 16:50 Temperature Pulse Rate 81 77 80 Respiratory Rate 24 25 H 24 Blood Pressure 99/50 L Pulse Oximetry 94 94 92 05/02/21 17:00 05/02/21 17:10 05/02/21 17:11 Temperature 100.5 F H Pulse Rate 75 82 Respiratory Rate 22 24 Blood Pressure 90/52 L Pulse Oximetry 94 94 05/02/21 17:16 05/02/21 17:20 05/02/21 17:30 Temperature Pulse Rate 82 76 73 Respiratory Rate 24 24 25 H Blood Pressure 98/49 L 95/53 L Pulse Oximetry 94 93 94 05/02/21 17:40 05/02/21 17:45 05/02/21 17:50 Temperature Pulse Rate 93 H 73 66 Respiratory Rate 24 18 24 Blood Pressure 102/55 L Pulse Oximetry 94 94 92 05/02/21 18:00 05/02/21 18:10 05/02/21 18:15 Temperature Pulse Rate 67 72 71 Respiratory Rate 26 H 18 16 Blood Pressure 81/48 L 97/55 L Pulse Oximetry 96 95 95 05/02/21 18:20 05/02/21 18:30 05/02/21 18:38 Temperature Pulse Rate 72 67 66 Respiratory Rate 25 H 22 22 Blood Pressure 93/51 L 91/54 L Pulse Oximetry 95 95 95 05/02/21 18:40 05/02/21 18:50 05/02/21 19:00 Temperature Pulse Rate 67 61 59 L Respiratory Rate 24 19 25 H Blood Pressure 78/50 L Pulse Oximetry 96 96 05/02/21 19:06 05/02/21 19:10 05/02/21 19:20 Temperature Pulse Rate 58 L 58 L 61 Respiratory Rate 25 H 18 16 Blood Pressure 86/54 L 91/52 L Pulse Oximetry 95 96 96 05/02/21 19:30 05/02/21 19:40 05/02/21 20:26 Temperature Pulse Rate 59 L 61 58 L Respiratory Rate 19 20 23 Blood Pressure 93/55 L 96/54 L 107/61 Pulse Oximetry 95 95 98 05/02/21 20:28 05/02/21 20:30 05/02/21 20:32 Temperature Pulse Rate 57 L 64 68 Respiratory Rate 16 23 24 Blood Pressure 146/82 H 151/89 H 152/87 H Pulse Oximetry 99 97 99 05/02/21 20:34 05/02/21 20:36 05/02/21 20:38 Temperature Pulse Rate 71 72 69 Respiratory Rate 30 H 24 27 H Blood Pressure 144/86 H 139/80 142/70 H Pulse Oximetry 99 98 98 05/02/21 20:40 05/02/21 20:42 05/02/21 20:44 Temperature Pulse Rate 67 66 65 Respiratory Rate 22 22 16 Blood Pressure 129/66 129/66 128/69 Pulse Oximetry 98 99 98 05/02/21 20:46 05/02/21 20:47 05/02/21 20:48 Temperature Pulse Rate 64 61 54 L Respiratory Rate 22 20 16 Blood Pressure 127/72 135/78 Pulse Oximetry 98 98 05/02/21 20:50 05/02/21 20:52 05/02/21 20:54 Temperature Pulse Rate 59 L 52 L 54 L Respiratory Rate 24 24 24 Blood Pressure 130/79 126/78 125/75 Pulse Oximetry 98 98 98 05/02/21 20:56 05/02/21 20:58 05/02/21 21:00 Temperature Pulse Rate 57 L 58 L 57 L Respiratory Rate 22 24 22 Blood Pressure 126/75 121/73 122/75 Pulse Oximetry 98 98 98 05/02/21 21:02 05/02/21 21:04 05/02/21 21:06 Temperature Pulse Rate 54 L 59 L 54 L Respiratory Rate 20 22 22 Blood Pressure 117/72 117/63 116/65 Pulse Oximetry 98 98 98 05/02/21 21:08 05/02/21 21:10 05/02/21 21:12 Temperature Pulse Rate 52 L 57 L 59 L Respiratory Rate 23 21 21 Blood Pressure 120/64 119/66 119/64 Pulse Oximetry 98 98 97 05/02/21 21:14 05/02/21 21:16 05/02/21 21:18 Temperature Pulse Rate 62 62 59 L Respiratory Rate 18 16 24 Blood Pressure 109/61 108/62 105/61 Pulse Oximetry 97 97 96 05/02/21 21:20 05/02/21 21:25 05/02/21 21:30 Temperature Pulse Rate 57 L 60 61 Respiratory Rate 18 23 16 Blood Pressure 113/62 112/63 112/63 Pulse Oximetry 96 96 96 05/02/21 21:34 05/02/21 21:35 05/02/21 21:40 Temperature 98.5 F Pulse Rate 60 59 L Respiratory Rate 19 15 Blood Pressure 112/62 107/57 L Pulse Oximetry 97 96 05/02/21 21:50 05/02/21 21:54 Temperature 97.5 F L Pulse Rate 62 61 Respiratory Rate 23 20 Blood Pressure 121/70 105/58 L Pulse Oximetry 96 96 Oxygen Delivery Method Room Air Oxygen Flow Rate 0 Narrative Exam Narrative: Gen: Alert, oriented, morbidly obese 56 y.o. /[place] male, a bit drowsy HEENT: normocephalic, atraumatic, conjunctiva clear, sclera non-icteric, oral mucosa pink and moist Neck: supple, full ROM, no JVD, trachea is midline Resp: Lungs CTA, non-labored breathing CV: RRR, no murmur or rubs Abd: soft, non-tender, normoactive BTs Skin: no lesions or rashes, dry and intact Neuro: Lethargic, but alert and oriented X 4 w/no focal deficits. Speech clear and coherent. Extremities: Left lower leg is erythematous and dark and has point tenderness set a specific point in his posterior upper calf that feels like the same area where he states was poked while he was out hiking. Moves all 4 extremities, is ambulatory, negative Sylvain?s sign Psyche: normal mood and affect. Objective Labs Result Diagrams: 05/02/21 14:20 05/02/21 14:20 Labs: Laboratory Results - last 24 hr 05/02/21 05/02/21 05/02/21 14:20 14:20 14:20 WBC 9.5 RBC 4.84 Hgb 15.1 Hct 43.5 MCV 89.8 MCH 31.1 MCHC 34.7 RDW 13.4 Plt Count 174 Neut % (Auto) 82.8 H Lymph % (Auto) 7.3 L [place] % (Auto) 9.3 Eos % (Auto) 0.3 L Baso % (Auto) 0.3 Neut # (Auto) 7900 H Lymph # (Auto) 700 L [place] # (Auto) 900 Eos # (Auto) 0 Baso # (Auto) 0 Sodium 134 L Potassium 4.5 Chloride 101 Carbon Dioxide 25 BUN 15 Creatinine 0.89 Estimated GFR > 60.0 BUN/Creatinine Ratio 16.9 Glucose 104 H Lactate 2.2 H Calcium 9.2 Total Bilirubin 0.7 AST 50 ALT 45 Alkaline Phosphatase 43 Total Creatine Kinase CK-MB (CK-2) CK-MB (CK-2) Rel Index Troponin I Total Protein 8.5 H Albumin 4.6 Globulin 3.9 Albumin/Globulin Ratio 1.2 Lipase 141 Procalcitonin 0.24 Urine Color Urine Appearance Urine pH Ur Specific [place] Urine Protein Urine Glucose (UA) Urine Ketones Urine Occult Blood Urine Nitrate Urine Bilirubin Urine Urobilinogen Ur Leukocyte Esterase Urine RBC Urine WBC Ur Squamous Epith Cells Urine Bacteria Ur Culture Indicated? Micro UA Comment U Opiates 300ng/mL cut Ur Oxycodone Screen Urine Methadone Screen Ur Barbiturates Screen U Tricyclic Antidepress Ur Phencyclidine Scrn Ur Amphetamines Screen U Methamphetamines Scrn Ur MDMA Scrn (Ecstasy) U Benzodiazepines Scrn Urine Cocaine Screen U Marijuana (THC) Screen SARS-CoV-2 (PCR) 05/02/21 05/02/21 05/02/21 16:11 16:37 21:03 WBC RBC Hgb Hct MCV MCH MCHC RDW Plt Count Neut % (Auto) Lymph % (Auto) [place] % (Auto) Eos % (Auto) Baso % (Auto) Neut # (Auto) Lymph # (Auto) [place] # (Auto) Eos # (Auto) Baso # (Auto) Sodium Potassium Chloride Carbon Dioxide BUN Creatinine Estimated GFR BUN/Creatinine Ratio Glucose Lactate 1.5 1.2 Calcium Total Bilirubin AST ALT Alkaline Phosphatase Total Creatine Kinase CK-MB (CK-2) CK-MB (CK-2) Rel Index Troponin I Total Protein Albumin Globulin Albumin/Globulin Ratio Lipase Procalcitonin Urine Color Urine Appearance Urine pH Ur Specific [place] Urine Protein Urine Glucose (UA) Urine Ketones Urine Occult Blood Urine Nitrate Urine Bilirubin Urine Urobilinogen Ur Leukocyte Esterase Urine RBC Urine WBC Ur Squamous Epith Cells Urine Bacteria Ur Culture Indicated? Micro UA Comment U Opiates 300ng/mL cut Ur Oxycodone Screen Urine Methadone Screen Ur Barbiturates Screen U Tricyclic Antidepress Ur Phencyclidine Scrn Ur Amphetamines Screen U Methamphetamines Scrn Ur MDMA Scrn (Ecstasy) U Benzodiazepines Scrn Urine Cocaine Screen U Marijuana (THC) Screen SARS-CoV-2 (PCR) Negative 05/02/21 05/02/21 05/02/21 21:17 21:17 21:17 WBC RBC Hgb Hct MCV MCH MCHC RDW Plt Count Neut % (Auto) Lymph % (Auto) [place] % (Auto) Eos % (Auto) Baso % (Auto) Neut # (Auto) Lymph # (Auto) [place] # (Auto) Eos # (Auto) Baso # (Auto) Sodium Potassium Chloride Carbon Dioxide BUN Creatinine Estimated GFR BUN/Creatinine Ratio Glucose Lactate Calcium Total Bilirubin AST ALT Alkaline Phosphatase Total Creatine Kinase 295 H CK-MB (CK-2) 0.74 CK-MB (CK-2) Rel Index 0.3 L Troponin I < 0.012 Total Protein Albumin Globulin Albumin/Globulin Ratio Lipase Procalcitonin Urine Color Yellow Urine Appearance Clear Urine pH 6.5 Ur Specific [place] <=1.005 Urine Protein Negative Urine Glucose (UA) Negative Urine Ketones Negative Urine Occult Blood Negative Urine Nitrate Negative Urine Bilirubin Negative Urine Urobilinogen 0.2 Ur Leukocyte Esterase Negative Urine RBC None seen Urine WBC None seen Ur Squamous Epith Cells 0-1 /hpf Urine Bacteria None seen Ur Culture Indicated? Cult not indicated Micro UA Comment Microscopic normal U Opiates 300ng/mL cut Negative Ur Oxycodone Screen Negative Urine Methadone Screen Negative Ur Barbiturates Screen Negative U Tricyclic Antidepress Negative Ur Phencyclidine Scrn Negative Ur Amphetamines Screen Negative U Methamphetamines Scrn Negative Ur MDMA Scrn (Ecstasy) Negative U Benzodiazepines Scrn Negative Urine Cocaine Screen Negative U Marijuana (THC) Screen Negative SARS-CoV-2 (PCR) Assessment & Plan Assessment & Plan narrative: Robert Cooper is a 56-year-old morbidly obese male with some significant cardiac risk factors is admitted for sepsis associated with a left lower calf cellulitis. 1. Sepsis in the setting of Left lower calf cellulitis, acute, present on admission Patient was administered IV ceftriaxone and this will continue Patient has a history of MRSA and was initially administered vancomycin 2. Hypotension in the setting of sepsis versus response to ketamine administration Patient had a Levophed drip which is now been discontinued due to normalization of his blood pressures 3. History of MRSA His PCR swab is negative and vancomycin is now discontinued 4. Essential hypertension, chronic If his blood pressure holds, he will be resumed on his home dose of lisinopril 5. History of bilateral PE D-dimer was 802, possible DVT/PE He is ordered for a duplex ultrasound of both lower extremities to rule out a DVT He is currently on prophylaxis for DVT VTE Prophylaxis: Wells risk score 1.5Enoxaparin 40 mg subQ once daily right-sided SCD Patient is admitted to the intensive care unit due to the severity of disease, risks of further disease progression and this stay is expected to exceed 2 midnights. FEN: IV fluids: Normal saline at 125 mL/hour diet: Heart healthy, labs: CBC, C/BMP, liver enzymes, Mag, Consultants intercept ICU involvement appreciated Dispo: Probable discharge to home Code status: Full codeas discussed with the patient who identifies his , Damaris his surrogate and POA. [X] I have utilized all available immediate resources to obtain, update, or review of the patient's current medications VTE on admission study is pending. COVID-19 COVID-19 status: Negative Result date/Date tested (Pos, Neg/Pending): 05/03/21 Scores Wells' Criteria for PE Clinical signs and symptoms of DVT: No PE is #1 Dx or equally likely: No Heart rate > 100: No Immobilization at least 3 days or surg in previous 4 weeks: No History of PE or DVT: Yes Hemoptysis: No Malignancy w/Treatment within 6 months or palliative: No Wells' PE Score total: 1.5 Quality MIPS - Admit I confirm the patient?s Advance Care Plan is present, Code status is documented, Surrogate decision maker is in patient?s record [If Yes, STOP here]: Yes MIPS - DC The patient has current or prior documentation of left ventricular ejection fraction (LVEF) less than 40%, or moderate or severely depressed left ventricular systolic function.: No
--- NOTE | 2021-05-02 23:26 | PC.ADMIT ---
Addendum entered by Laura Grullon R.N. 05/03/21 05:42: 0400-Pt requesting to get OOB, c/o needing a change of position Bp lower than last check, Pt persistant about not using BSC. Able to dangle for extended time at bedside. With staff standing by stood without dizziness and ambulated to BR. Continues to be comfortable, no chest pain, no drop in BP. Pt up to recliner , with legs elevated to sleep. Call light in reach. Update given to via phone. IJ infusing to R neck. PIV x2 SL. Last BP 107/55 Labs drawn via Central line. Norepi remains off. Addendum entered by Laura Grullon R.N. 05/03/21 01:52: 0140-NOrepi off, VSS last BP 133/60, Pt more alert, given APAP for GARCIA. Update given to via phone. Addendum entered by Laura Grullon R.N. 05/03/21 00:18: Pt reports pain is controlled at present, declines pain medication. Cooperative with all care. Temp normal. Norepi titrated down to 1mcg/min Original Note: [address] [place] Admission Note:Pt arrived via stretcher and transferred with slider board, reports being out of it from Ketamine given in ER. [place] at bedside. Able to provide through admission. Pt is significantly more alert as assessment completed. Able to make needs known. R IJ in place, and PIV x2. Arrives on Norepi @ 3mcg/min, reduced to 2on arrival. BP 110's/60's with MAP > 70. Denies nausea, skin check completed with Ivette RN, notable for LLE hemociterin type staining. Warm to touch, per Pt painful with pressure. Pt is cooperative and making jokes. Using urinal to void. Reports no pain at present, except to tension on IJ with movement in bed. will stay at local hotel, but leaves updated contact information with this RN. The patient,Robert Cooper,56 y/o, was given written information regarding hospital policies, unit procedures and contact persons. Patient's smoking status: . Vital Signs - 8 hr 05/02/21 15:30 05/02/21 15:32 05/02/21 15:41 Temperature Pulse Rate 79 78 78 Respiratory Rate 15 16 24 Blood Pressure 91/52 L 119/57 L Pulse Oximetry 97 98 97 05/02/21 15:45 05/02/21 15:46 05/02/21 15:50 Temperature 103 F H Pulse Rate 79 84 Respiratory Rate 19 25 H Blood Pressure 102/51 L Pulse Oximetry 97 98 05/02/21 16:00 05/02/21 16:08 05/02/21 16:10 Temperature Pulse Rate 81 77 81 Respiratory Rate 27 H 16 24 Blood Pressure 96/56 L 111/57 L Pulse Oximetry 96 97 96 05/02/21 16:15 05/02/21 16:20 05/02/21 16:30 Temperature Pulse Rate 79 84 81 Respiratory Rate 19 24 22 Blood Pressure 117/57 L Pulse Oximetry 96 97 96 05/02/21 16:31 05/02/21 16:40 05/02/21 16:45 Temperature Pulse Rate 79 81 77 Respiratory Rate 15 24 25 H Blood Pressure 120/56 L 99/50 L Pulse Oximetry 96 94 94 05/02/21 16:50 05/02/21 17:00 05/02/21 17:10 Temperature Pulse Rate 80 75 82 Respiratory Rate 24 22 24 Blood Pressure 90/52 L Pulse Oximetry 92 94 94 05/02/21 17:11 05/02/21 17:16 05/02/21 17:20 Temperature 100.5 F H Pulse Rate 82 76 Respiratory Rate 24 24 Blood Pressure 98/49 L Pulse Oximetry 94 93 05/02/21 17:30 05/02/21 17:40 05/02/21 17:45 Temperature Pulse Rate 73 93 H 73 Respiratory Rate 25 H 24 18 Blood Pressure 95/53 L 102/55 L Pulse Oximetry 94 94 94 05/02/21 17:50 05/02/21 18:00 05/02/21 18:10 Temperature Pulse Rate 66 67 72 Respiratory Rate 24 26 H 18 Blood Pressure 81/48 L Pulse Oximetry 92 96 95 05/02/21 18:15 05/02/21 18:20 05/02/21 18:30 Temperature Pulse Rate 71 72 67 Respiratory Rate 16 25 H 22 Blood Pressure 97/55 L 93/51 L Pulse Oximetry 95 95 95 05/02/21 18:38 05/02/21 18:40 05/02/21 18:50 Temperature Pulse Rate 66 67 61 Respiratory Rate 22 24 19 Blood Pressure 91/54 L 78/50 L Pulse Oximetry 95 96 05/02/21 19:00 05/02/21 19:06 05/02/21 19:10 Temperature Pulse Rate 59 L 58 L 58 L Respiratory Rate 25 H 25 H 18 Blood Pressure 86/54 L Pulse Oximetry 96 95 96 05/02/21 19:20 05/02/21 19:30 05/02/21 19:40 Temperature Pulse Rate 61 59 L 61 Respiratory Rate 16 19 20 Blood Pressure 91/52 L 93/55 L 96/54 L Pulse Oximetry 96 95 95 05/02/21 20:26 05/02/21 20:28 05/02/21 20:30 Temperature Pulse Rate 58 L 57 L 64 Respiratory Rate 23 16 23 Blood Pressure 107/61 146/82 H 151/89 H Pulse Oximetry 98 99 97 05/02/21 20:32 05/02/21 20:34 05/02/21 20:36 Temperature Pulse Rate 68 71 72 Respiratory Rate 24 30 H 24 Blood Pressure 152/87 H 144/86 H 139/80 Pulse Oximetry 99 99 98 05/02/21 20:38 05/02/21 20:40 05/02/21 20:42 Temperature Pulse Rate 69 67 66 Respiratory Rate 27 H 22 22 Blood Pressure 142/70 H 129/66 129/66 Pulse Oximetry 98 98 99 05/02/21 20:44 05/02/21 20:46 05/02/21 20:47 Temperature Pulse Rate 65 64 61 Respiratory Rate 16 22 20 Blood Pressure 128/69 127/72 Pulse Oximetry 98 98 05/02/21 20:48 05/02/21 20:50 05/02/21 20:52 Temperature Pulse Rate 54 L 59 L 52 L Respiratory Rate 16 24 24 Blood Pressure 135/78 130/79 126/78 Pulse Oximetry 98 98 98 05/02/21 20:54 05/02/21 20:56 05/02/21 20:58 Temperature Pulse Rate 54 L 57 L 58 L Respiratory Rate 24 22 24 Blood Pressure 125/75 126/75 121/73 Pulse Oximetry 98 98 98 05/02/21 21:00 05/02/21 21:02 05/02/21 21:04 Temperature Pulse Rate 57 L 54 L 59 L Respiratory Rate 22 20 22 Blood Pressure 122/75 117/72 117/63 Pulse Oximetry 98 98 98 05/02/21 21:06 05/02/21 21:08 05/02/21 21:10 Temperature Pulse Rate 54 L 52 L 57 L Respiratory Rate 22 23 21 Blood Pressure 116/65 120/64 119/66 Pulse Oximetry 98 98 98 05/02/21 21:12 05/02/21 21:14 05/02/21 21:16 Temperature Pulse Rate 59 L 62 62 Respiratory Rate 21 18 16 Blood Pressure 119/64 109/61 108/62 Pulse Oximetry 97 97 97 05/02/21 21:18 05/02/21 21:20 05/02/21 21:25 Temperature Pulse Rate 59 L 57 L 60 Respiratory Rate 24 18 23 Blood Pressure 105/61 113/62 112/63 Pulse Oximetry 96 96 96 05/02/21 21:30 05/02/21 21:34 05/02/21 21:35 Temperature 98.5 F Pulse Rate 61 60 Respiratory Rate 16 19 Blood Pressure 112/63 112/62 Pulse Oximetry 96 97 05/02/21 21:40 05/02/21 21:50 05/02/21 21:54 Temperature 97.5 F L Pulse Rate 59 L 62 61 Respiratory Rate 15 23 20 Blood Pressure 107/57 L 121/70 105/58 L Pulse Oximetry 96 96 96 05/02/21 22:02 05/02/21 22:09 05/02/21 22:10 Temperature Pulse Rate 61 61 61 Respiratory Rate 21 23 16 Blood Pressure 105/58 L Pulse Oximetry 96 97 96 05/02/21 22:20 05/02/21 22:30 05/02/21 22:31 Temperature Pulse Rate 62 59 L 59 L Respiratory Rate 19 21 18 Blood Pressure 109/60 Pulse Oximetry 96 96 05/02/21 22:32 05/02/21 22:40 05/02/21 22:45 Temperature Pulse Rate 59 L 59 L 60 Respiratory Rate 15 15 29 H Blood Pressure 109/59 L 111/63 Pulse Oximetry 96 97 93 05/02/21 22:50 05/02/21 23:00 05/02/21 23:10 Temperature Pulse Rate 60 62 61 Respiratory Rate 35 H 26 H 16 Blood Pressure 113/55 L Pulse Oximetry 95 97 05/02/21 23:15 05/02/21 23:20 Temperature Pulse Rate 63 60 Respiratory Rate 23 18 Blood Pressure 119/65 Pulse Oximetry 94 94
[2021-05-02 23:30] LABS: D Dimer 803 ng/mL (<230)
--- NOTE | 2021-05-02 23:37 | PM.CN.EICU ---
History of Present Illness Consult details Chief complaint: infection :: This patient was seen in the Intensive Care Unit via real time interactive two-way audiovisual telecommunication. Narrative: 56 y.o. male admitted with septic shock due to a LLE cellulitis. Initial lactate was 2.2 but has normalized. He reported pain in LLE similar to a previous cellulitis episode involving that leg. Started on ceftriaxone; MRSA swab is pending. Started on norepinephrine. [facility] Social History household members: spouse Current Medications Current Medications Medications: Home Medications lisinopril 20 mg tablet 20 mg PO DAILY 05/02/21 [History Confirmed 05/02/21] Visit Medications (administered) Generic Name Dose Route Start Last Admin Trade Name Freq PRN Reason Stop Dose Admin NOREPINEPHRINE BITARTRATE/D5W 4 mg in 250 mls @ 30 mls/hr 05/02/21 19:45 05/02/21 22:10 Levophed IV 2 mcg/min TITRATE JESENIA 7.5 mls/hr Titration Protocol 8 MCG/MIN Exam Vital Signs (past 8 hours): - 05/02/21 15:41 05/02/21 15:45 05/02/21 15:46 Temperature 103 F H Pulse Rate 78 79 Respiratory Rate 24 19 Blood Pressure 119/57 L 102/51 L Pulse Oximetry 97 97 05/02/21 15:50 05/02/21 16:00 05/02/21 16:08 Temperature Pulse Rate 84 81 77 Respiratory Rate 25 H 27 H 16 Blood Pressure 96/56 L 111/57 L Pulse Oximetry 98 96 97 05/02/21 16:10 05/02/21 16:15 05/02/21 16:20 Temperature Pulse Rate 81 79 84 Respiratory Rate 24 19 24 Blood Pressure 117/57 L Pulse Oximetry 96 96 97 05/02/21 16:30 05/02/21 16:31 05/02/21 16:40 Temperature Pulse Rate 81 79 81 Respiratory Rate 22 15 24 Blood Pressure 120/56 L Pulse Oximetry 96 96 94 05/02/21 16:45 05/02/21 16:50 05/02/21 17:00 Temperature Pulse Rate 77 80 75 Respiratory Rate 25 H 24 22 Blood Pressure 99/50 L 90/52 L Pulse Oximetry 94 92 94 05/02/21 17:10 05/02/21 17:11 05/02/21 17:16 Temperature 100.5 F H Pulse Rate 82 82 Respiratory Rate 24 24 Blood Pressure 98/49 L Pulse Oximetry 94 94 05/02/21 17:20 05/02/21 17:30 05/02/21 17:40 Temperature Pulse Rate 76 73 93 H Respiratory Rate 24 25 H 24 Blood Pressure 95/53 L Pulse Oximetry 93 94 94 05/02/21 17:45 05/02/21 17:50 05/02/21 18:00 Temperature Pulse Rate 73 66 67 Respiratory Rate 18 24 26 H Blood Pressure 102/55 L 81/48 L Pulse Oximetry 94 92 96 05/02/21 18:10 05/02/21 18:15 05/02/21 18:20 Temperature Pulse Rate 72 71 72 Respiratory Rate 18 16 25 H Blood Pressure 97/55 L Pulse Oximetry 95 95 95 05/02/21 18:30 05/02/21 18:38 05/02/21 18:40 Temperature Pulse Rate 67 66 67 Respiratory Rate 22 22 24 Blood Pressure 93/51 L 91/54 L Pulse Oximetry 95 95 05/02/21 18:50 05/02/21 19:00 05/02/21 19:06 Temperature Pulse Rate 61 59 L 58 L Respiratory Rate 19 25 H 25 H Blood Pressure 78/50 L 86/54 L Pulse Oximetry 96 96 95 05/02/21 19:10 05/02/21 19:20 05/02/21 19:30 Temperature Pulse Rate 58 L 61 59 L Respiratory Rate 18 16 19 Blood Pressure 91/52 L 93/55 L Pulse Oximetry 96 96 95 05/02/21 19:40 05/02/21 20:26 05/02/21 20:28 Temperature Pulse Rate 61 58 L 57 L Respiratory Rate 20 23 16 Blood Pressure 96/54 L 107/61 146/82 H Pulse Oximetry 95 98 99 05/02/21 20:30 05/02/21 20:32 05/02/21 20:34 Temperature Pulse Rate 64 68 71 Respiratory Rate 23 24 30 H Blood Pressure 151/89 H 152/87 H 144/86 H Pulse Oximetry 97 99 99 05/02/21 20:36 05/02/21 20:38 05/02/21 20:40 Temperature Pulse Rate 72 69 67 Respiratory Rate 24 27 H 22 Blood Pressure 139/80 142/70 H 129/66 Pulse Oximetry 98 98 98 05/02/21 20:42 05/02/21 20:44 05/02/21 20:46 Temperature Pulse Rate 66 65 64 Respiratory Rate 22 16 22 Blood Pressure 129/66 128/69 127/72 Pulse Oximetry 99 98 98 05/02/21 20:47 05/02/21 20:48 05/02/21 20:50 Temperature Pulse Rate 61 54 L 59 L Respiratory Rate 20 16 24 Blood Pressure 135/78 130/79 Pulse Oximetry 98 98 05/02/21 20:52 05/02/21 20:54 05/02/21 20:56 Temperature Pulse Rate 52 L 54 L 57 L Respiratory Rate 24 24 22 Blood Pressure 126/78 125/75 126/75 Pulse Oximetry 98 98 98 05/02/21 20:58 05/02/21 21:00 05/02/21 21:02 Temperature Pulse Rate 58 L 57 L 54 L Respiratory Rate 24 22 20 Blood Pressure 121/73 122/75 117/72 Pulse Oximetry 98 98 98 05/02/21 21:04 05/02/21 21:06 05/02/21 21:08 Temperature Pulse Rate 59 L 54 L 52 L Respiratory Rate 22 22 23 Blood Pressure 117/63 116/65 120/64 Pulse Oximetry 98 98 98 05/02/21 21:10 05/02/21 21:12 05/02/21 21:14 Temperature Pulse Rate 57 L 59 L 62 Respiratory Rate 21 21 18 Blood Pressure 119/66 119/64 109/61 Pulse Oximetry 98 97 97 05/02/21 21:16 05/02/21 21:18 05/02/21 21:20 Temperature Pulse Rate 62 59 L 57 L Respiratory Rate 16 24 18 Blood Pressure 108/62 105/61 113/62 Pulse Oximetry 97 96 96 05/02/21 21:25 05/02/21 21:30 05/02/21 21:34 Temperature 98.5 F Pulse Rate 60 61 Respiratory Rate 23 16 Blood Pressure 112/63 112/63 Pulse Oximetry 96 96 05/02/21 21:35 05/02/21 21:40 05/02/21 21:50 Temperature Pulse Rate 60 59 L 62 Respiratory Rate 19 15 23 Blood Pressure 112/62 107/57 L 121/70 Pulse Oximetry 97 96 96 05/02/21 21:54 05/02/21 22:02 05/02/21 22:09 Temperature 97.5 F L Pulse Rate 61 61 61 Respiratory Rate 20 21 23 Blood Pressure 105/58 L 105/58 L Pulse Oximetry 96 96 97 05/02/21 22:10 05/02/21 22:20 05/02/21 22:30 Temperature Pulse Rate 61 62 59 L Respiratory Rate 16 19 21 Blood Pressure Pulse Oximetry 96 96 05/02/21 22:31 05/02/21 22:32 05/02/21 22:40 Temperature Pulse Rate 59 L 59 L 59 L Respiratory Rate 18 15 15 Blood Pressure 109/60 109/59 L Pulse Oximetry 96 96 97 05/02/21 22:45 05/02/21 22:50 05/02/21 23:00 Temperature Pulse Rate 60 60 62 Respiratory Rate 29 H 35 H 26 H Blood Pressure 111/63 113/55 L Pulse Oximetry 93 95 05/02/21 23:10 05/02/21 23:15 05/02/21 23:20 Temperature Pulse Rate 61 63 60 Respiratory Rate 16 23 18 Blood Pressure 119/65 Pulse Oximetry 97 94 94 Oxygen Delivery Method Room Air Oxygen Flow Rate 0 Const General: comfortable Nutritional Appearance: obese Extrem Left lower extremity: cyanosis ([facility] [place]) and edema Objective Labs Result Diagrams: 05/02/21 14:20 05/02/21 14:20 Labs: Laboratory Results - last 24 hr 05/02/21 05/02/21 05/02/21 14:20 14:20 14:20 WBC 9.5 RBC 4.84 Hgb 15.1 Hct 43.5 MCV 89.8 MCH 31.1 MCHC 34.7 RDW 13.4 Plt Count 174 Neut % (Auto) 82.8 H Lymph % (Auto) 7.3 L [place] % (Auto) 9.3 Eos % (Auto) 0.3 L Baso % (Auto) 0.3 Neut # (Auto) 7900 H Lymph # (Auto) 700 L [place] # (Auto) 900 Eos # (Auto) 0 Baso # (Auto) 0 D-Dimer Sodium 134 L Potassium 4.5 Chloride 101 Carbon Dioxide 25 BUN 15 Creatinine 0.89 Estimated GFR > 60.0 BUN/Creatinine Ratio 16.9 Glucose 104 H Lactate 2.2 H Calcium 9.2 Total Bilirubin 0.7 AST 50 ALT 45 Alkaline Phosphatase 43 Total Creatine Kinase CK-MB (CK-2) CK-MB (CK-2) Rel Index Troponin I Total Protein 8.5 H Albumin 4.6 Globulin 3.9 Albumin/Globulin Ratio 1.2 Lipase 141 Procalcitonin 0.24 Urine Color Urine Appearance Urine pH Ur Specific [place] Urine Protein Urine Glucose (UA) Urine Ketones Urine Occult Blood Urine Nitrate Urine Bilirubin Urine Urobilinogen Ur Leukocyte Esterase Urine RBC Urine WBC Ur Squamous Epith Cells Urine Bacteria Ur Culture Indicated? Micro UA Comment Nasal Screen MRSA (PCR) U Opiates 300ng/mL cut Ur Oxycodone Screen Urine Methadone Screen Ur Barbiturates Screen U Tricyclic Antidepress Ur Phencyclidine Scrn Ur Amphetamines Screen U Methamphetamines Scrn Ur MDMA Scrn (Ecstasy) U Benzodiazepines Scrn Urine Cocaine Screen U Marijuana (THC) Screen SARS-CoV-2 (PCR) 05/02/21 05/02/21 05/02/21 16:11 16:37 21:03 WBC RBC Hgb Hct MCV MCH MCHC RDW Plt Count Neut % (Auto) Lymph % (Auto) [place] % (Auto) Eos % (Auto) Baso % (Auto) Neut # (Auto) Lymph # (Auto) [place] # (Auto) Eos # (Auto) Baso # (Auto) D-Dimer Sodium Potassium Chloride Carbon Dioxide BUN Creatinine Estimated GFR BUN/Creatinine Ratio Glucose Lactate 1.5 1.2 Calcium Total Bilirubin AST ALT Alkaline Phosphatase Total Creatine Kinase CK-MB (CK-2) CK-MB (CK-2) Rel Index Troponin I Total Protein Albumin Globulin Albumin/Globulin Ratio Lipase Procalcitonin Urine Color Urine Appearance Urine pH Ur Specific [place] Urine Protein Urine Glucose (UA) Urine Ketones Urine Occult Blood Urine Nitrate Urine Bilirubin Urine Urobilinogen Ur Leukocyte Esterase Urine RBC Urine WBC Ur Squamous Epith Cells Urine Bacteria Ur Culture Indicated? Micro UA Comment Nasal Screen MRSA (PCR) U Opiates 300ng/mL cut Ur Oxycodone Screen Urine Methadone Screen Ur Barbiturates Screen U Tricyclic Antidepress Ur Phencyclidine Scrn Ur Amphetamines Screen U Methamphetamines Scrn Ur MDMA Scrn (Ecstasy) U Benzodiazepines Scrn Urine Cocaine Screen U Marijuana (THC) Screen SARS-CoV-2 (PCR) Negative 05/02/21 05/02/21 05/02/21 21:17 21:17 21:17 WBC RBC Hgb Hct MCV MCH MCHC RDW Plt Count Neut % (Auto) Lymph % (Auto) [place] % (Auto) Eos % (Auto) Baso % (Auto) Neut # (Auto) Lymph # (Auto) [place] # (Auto) Eos # (Auto) Baso # (Auto) D-Dimer Sodium Potassium Chloride Carbon Dioxide BUN Creatinine Estimated GFR BUN/Creatinine Ratio Glucose Lactate Calcium Total Bilirubin AST ALT Alkaline Phosphatase Total Creatine Kinase 295 H CK-MB (CK-2) 0.74 CK-MB (CK-2) Rel Index 0.3 L Troponin I < 0.012 Total Protein Albumin Globulin Albumin/Globulin Ratio Lipase Procalcitonin Urine Color Yellow Urine Appearance Clear Urine pH 6.5 Ur Specific [place] <=1.005 Urine Protein Negative Urine Glucose (UA) Negative Urine Ketones Negative Urine Occult Blood Negative Urine Nitrate Negative Urine Bilirubin Negative Urine Urobilinogen 0.2 Ur Leukocyte Esterase Negative Urine RBC None seen Urine WBC None seen Ur Squamous Epith Cells 0-1 /hpf Urine Bacteria None seen Ur Culture Indicated? Cult not indicated Micro UA Comment Microscopic normal Nasal Screen MRSA (PCR) U Opiates 300ng/mL cut Negative Ur Oxycodone Screen Negative Urine Methadone Screen Negative Ur Barbiturates Screen Negative U Tricyclic Antidepress Negative Ur Phencyclidine Scrn Negative Ur Amphetamines Screen Negative U Methamphetamines Scrn Negative Ur MDMA Scrn (Ecstasy) Negative U Benzodiazepines Scrn Negative Urine Cocaine Screen Negative U Marijuana (THC) Screen Negative SARS-CoV-2 (PCR) 05/02/21 05/02/21 22:00 23:06 WBC RBC Hgb Hct MCV MCH MCHC RDW Plt Count Neut % (Auto) Lymph % (Auto) [place] % (Auto) Eos % (Auto) Baso % (Auto) Neut # (Auto) Lymph # (Auto) [place] # (Auto) Eos # (Auto) Baso # (Auto) D-Dimer 803 H Sodium Potassium Chloride Carbon Dioxide BUN Creatinine Estimated GFR BUN/Creatinine Ratio Glucose Lactate Calcium Total Bilirubin AST ALT Alkaline Phosphatase Total Creatine Kinase CK-MB (CK-2) CK-MB (CK-2) Rel Index Troponin I Total Protein Albumin Globulin Albumin/Globulin Ratio Lipase Procalcitonin Urine Color Urine Appearance Urine pH Ur Specific [place] Urine Protein Urine Glucose (UA) Urine Ketones Urine Occult Blood Urine Nitrate Urine Bilirubin Urine Urobilinogen Ur Leukocyte Esterase Urine RBC Urine WBC Ur Squamous Epith Cells Urine Bacteria Ur Culture Indicated? Micro UA Comment Nasal Screen MRSA (PCR) Negative for mrsa U Opiates 300ng/mL cut Ur Oxycodone Screen Urine Methadone Screen Ur Barbiturates Screen U Tricyclic Antidepress Ur Phencyclidine Scrn Ur Amphetamines Screen U Methamphetamines Scrn Ur MDMA Scrn (Ecstasy) U Benzodiazepines Scrn Urine Cocaine Screen U Marijuana (THC) Screen SARS-CoV-2 (PCR) Assessment & Plan Assessment and plan (1) Septic shock: Status: Acute Plan: -Continue ceftriaxone/norepinephrine -Start vancomycin if MRSA swab is (+) (2) Left leg cellulitis: Status: Acute Plan: -See problem #1 (3) Elevated d-dimer: Status: Acute Plan: -Check LE doppler Time Spent With Patient Critical Care time: I spent a total of 35 minutes of critical care time on this patient's care today; this time is exclusive of procedural time.
[2021-05-03] VITALS (37 sets, daily range): BP systolic 89–140; BP diastolic 45–70; PULSE 54–73; RESP 16–35; TEMP 36.6–37.4; O2SAT 89–99
[2021-05-03] MEDS: LACTATED RINGERS 1,000 ML 150 ML IV
[2021-05-03] MEDS: ACETAMINOPHEN 325 MG TABLET 650 MG PO ×4 (01:24→23:28)
[2021-05-03] MEDS: VANCOMYCIN 1,500 MG/300 ML PIGGYBACK 200 MG IV ×3 (01:29→23:28)
--- NOTE | 2021-05-03 03:53 | DI.US.S_ITS ---
PROCEDURE: US PERIPH VENOUS LOW EXTREM BI INDICATIONS: ELEVATED D-DIMER; EDEMA TECHNIQUE: Real-time imaging, as well as color and pulse Doppler interrogation, were performed of the deep veins of both legs from the inguinal ligament to the popliteal fossa. COMPARISON: None. FINDINGS: Right: The common femoral, femoral and popliteal veins are normally compressible, and free of intraluminal thrombus. Color and pulse Doppler demonstrate normal phasic intravascular flow. There is normal augmentation response to distal compression maneuver. Left: The common femoral, femoral and popliteal veins are normally compressible, and free of intraluminal thrombus. Color and pulse Doppler demonstrate normal phasic intravascular flow. There is normal augmentation response to distal compression maneuver. IMPRESSION: No deep venous thrombosis. Dictated by: Justyna Lee M.D. on 05/03/2021 at 9:06 Approved by: Justyna Lee M.D. on 05/03/2021 at 9:07
[2021-05-03 04:59] LABS: Add Manual Diff / Slide Review NO; Basophils Absolute Auto 100 /uL (0-100); Basophils Percent Auto 0.6 % (0-2); Eosinophils Absolute Auto 0 /uL (0-450); Hematocrit 39.6 % (41-53); Hemoglobin 13.7 g/dL (13.5-17.5); Lymphocytes Absolute Auto 900 /uL (1100-4500); Lymphocytes Percent Auto 9.1 % (25-40); Mean Corpuscular HGB Conc 34.6 % (30-36); Mean Corpuscular Hemoglobin 31.6 PG (26-34); Mean Corpuscular Volume 91.3 fL (80-100); Monocytes Absolute Auto 700 /uL (0-900); Monocytes Percent Auto 7.7 % (3-14); Neutrophils Absolute Auto 7800 /uL (1500-7000); Neutrophils Percent Auto 82.6 % (50-75); Platelet Count 152 X10^3/uL (150-400); Red Blood Cell Count 4.33 X10^6/uL (4.5-5.9); Red Cell Distribution Width 13.4 % (11.6-14.8); White Blood Cell Count 9.5 X10^3/uL (4.5-11.0)
[2021-05-03 05:10] LABS: Alanine Aminotransferase 45 IU/L (<50); Albumin 3.8 g/dL (3.5-5.0); Albumin Globulin Ratio 1.1 (1.0-2.8); Alkaline Phosphatase 35 U/L (38-126); Aspartate Aminotransferase 51 IU/L (17-59); BUN Creatinine Ratio 18.3 (6-22); Bilirubin Total 0.8 mg/dL (0.2-1.3); Bilirubin Unconjugated 0.8 mg/dL (0.0-1.1); Blood Urea Nitrogen 15 mg/dL (9-20); Calcium 8.1 mg/dL (8.4-10.2); Carbon Dioxide 23 mmol/L (22-32); Chloride 105 mmol/L (98-107); Estimated Glomerular Filt Rate > 60.0 mL/min (>60); Globulin 3.5 g/dL (1.7-4.1); Glucose 124 mg/dL (70-100); HEMOLYSIS 22 (0-50); Magnesium 2.1 mg/dL (1.6-2.3); Potassium 4.3 mmol/L (3.4-5.1); Sodium 136 mmol/L (137-145); Total Protein 7.3 g/dL (6.3-8.2)
[2021-05-03] MEDS: SODIUM CHLORIDE 0.9% 1,000 ML 125 ML IV (06:00)
--- NOTE | 2021-05-03 07:31 | PM.PN.EICU ---
Subjective Subjective :: This patient was seen in the Intensive Care Unit via real time interactive two-way audiovisual telecommunication. Patient Summary: Terrance Cooper is a 56 y.o. 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 Pt. got started on Ceftriaxone. Recent events: -patient weaned off of Levophed since 1 am this morning, last BP 113/70 HR 50s -labs reveiwed and were unremarkable except for hgb went from 15 to 13 (probably from hemodilution) -patient currently sitting up in bed doing well Current Medications Current Medications Medications: Home Medications lisinopril 20 mg tablet 20 mg PO DAILY 05/02/21 [History Confirmed 05/02/21] Visit Medications (administered) Generic Name Dose Route Start Last Admin Trade Name Freq PRN Reason Stop Dose Admin Acetaminophen 650 mg 05/03/21 00:00 05/03/21 06:24 Acetaminophen 325 Mg Tablet PO Not Given Q6HR JESENIA NOREPINEPHRINE BITARTRATE/D5W 4 mg in 250 mls @ 30 mls/hr 05/02/21 19:45 05/03/21 01:22 Levophed IV 0 mcg/min TITRATE JESENIA 0 mls/hr Titration Protocol 8 MCG/MIN Lactated Ringer's 1,000 mls @ 150 mls/hr 05/02/21 22:00 05/03/21 06:50 Lactated Ringers IV Infused CONT JESENIA Infusion Sodium Chloride 1,000 mls @ 125 mls/hr 05/03/21 04:45 05/03/21 06:00 Normal Saline 0.9% IV 125 mls/hr CONT JESENIA Administration Objective Labs Result Diagrams: 05/03/21 04:45 05/03/21 04:45 Labs: Laboratory Results - last 24 hr 05/02/21 05/02/21 05/02/21 14:20 14:20 14:20 WBC 9.5 RBC 4.84 Hgb 15.1 Hct 43.5 MCV 89.8 MCH 31.1 MCHC 34.7 RDW 13.4 Plt Count 174 Neut % (Auto) 82.8 H Lymph % (Auto) 7.3 L [place] % (Auto) 9.3 Eos % (Auto) 0.3 L Baso % (Auto) 0.3 Neut # (Auto) 7900 H Lymph # (Auto) 700 L [place] # (Auto) 900 Eos # (Auto) 0 Baso # (Auto) 0 D-Dimer Sodium 134 L Potassium 4.5 Chloride 101 Carbon Dioxide 25 BUN 15 Creatinine 0.89 Estimated GFR > 60.0 BUN/Creatinine Ratio 16.9 Glucose 104 H Lactate 2.2 H Calcium 9.2 Magnesium Total Bilirubin 0.7 Conjugated Bilirubin Unconjugated Bilirubin AST 50 ALT 45 Alkaline Phosphatase 43 Total Creatine Kinase CK-MB (CK-2) CK-MB (CK-2) Rel Index Troponin I Total Protein 8.5 H Albumin 4.6 Globulin 3.9 Albumin/Globulin Ratio 1.2 Lipase 141 Procalcitonin 0.24 Urine Color Urine Appearance Urine pH Ur Specific Newberry Urine Protein Urine Glucose (UA) Urine Ketones Urine Occult Blood Urine Nitrate Urine Bilirubin Urine Urobilinogen Ur Leukocyte Esterase Urine RBC Urine WBC Ur Squamous Epith Cells Urine Bacteria Ur Culture Indicated? Micro UA Comment Nasal Screen MRSA (PCR) U Opiates 300ng/mL cut Ur Oxycodone Screen Urine Methadone Screen Ur Barbiturates Screen U Tricyclic Antidepress Ur Phencyclidine Scrn Ur Amphetamines Screen U Methamphetamines Scrn Ur MDMA Scrn (Ecstasy) U Benzodiazepines Scrn Urine Cocaine Screen U Marijuana (THC) Screen SARS-CoV-2 (PCR) 05/02/21 05/02/21 05/02/21 16:11 16:37 21:03 WBC RBC Hgb Hct MCV MCH MCHC RDW Plt Count Neut % (Auto) Lymph % (Auto) [place] % (Auto) Eos % (Auto) Baso % (Auto) Neut # (Auto) Lymph # (Auto) [place] # (Auto) Eos # (Auto) Baso # (Auto) D-Dimer Sodium Potassium Chloride Carbon Dioxide BUN Creatinine Estimated GFR BUN/Creatinine Ratio Glucose Lactate 1.5 1.2 Calcium Magnesium Total Bilirubin Conjugated Bilirubin Unconjugated Bilirubin AST ALT Alkaline Phosphatase Total Creatine Kinase CK-MB (CK-2) CK-MB (CK-2) Rel Index Troponin I Total Protein Albumin Globulin Albumin/Globulin Ratio Lipase Procalcitonin Urine Color Urine Appearance Urine pH Ur Specific [place] Urine Protein Urine Glucose (UA) Urine Ketones Urine Occult Blood Urine Nitrate Urine Bilirubin Urine Urobilinogen Ur Leukocyte Esterase Urine RBC Urine WBC Ur Squamous Epith Cells Urine Bacteria Ur Culture Indicated? Micro UA Comment Nasal Screen MRSA (PCR) U Opiates 300ng/mL cut Ur Oxycodone Screen Urine Methadone Screen Ur Barbiturates Screen U Tricyclic Antidepress Ur Phencyclidine Scrn Ur Amphetamines Screen U Methamphetamines Scrn Ur MDMA Scrn (Ecstasy) U Benzodiazepines Scrn Urine Cocaine Screen U Marijuana (THC) Screen SARS-CoV-2 (PCR) Negative 05/02/21 05/02/21 05/02/21 21:17 21:17 21:17 WBC RBC Hgb Hct MCV MCH MCHC RDW Plt Count Neut % (Auto) Lymph % (Auto) [place] % (Auto) Eos % (Auto) Baso % (Auto) Neut # (Auto) Lymph # (Auto) [place] # (Auto) Eos # (Auto) Baso # (Auto) D-Dimer Sodium Potassium Chloride Carbon Dioxide BUN Creatinine Estimated GFR BUN/Creatinine Ratio Glucose Lactate Calcium Magnesium Total Bilirubin Conjugated Bilirubin Unconjugated Bilirubin AST ALT Alkaline Phosphatase Total Creatine Kinase 295 H CK-MB (CK-2) 0.74 CK-MB (CK-2) Rel Index 0.3 L Troponin I < 0.012 Total Protein Albumin Globulin Albumin/Globulin Ratio Lipase Procalcitonin Urine Color Yellow Urine Appearance Clear Urine pH 6.5 Ur Specific Newberry <=1.005 Urine Protein Negative Urine Glucose (UA) Negative Urine Ketones Negative Urine Occult Blood Negative Urine Nitrate Negative Urine Bilirubin Negative Urine Urobilinogen 0.2 Ur Leukocyte Esterase Negative Urine RBC None seen Urine WBC None seen Ur Squamous Epith Cells 0-1 /hpf Urine Bacteria None seen Ur Culture Indicated? Cult not indicated Micro UA Comment Microscopic normal Nasal Screen MRSA (PCR) U Opiates 300ng/mL cut Negative Ur Oxycodone Screen Negative Urine Methadone Screen Negative Ur Barbiturates Screen Negative U Tricyclic Antidepress Negative Ur Phencyclidine Scrn Negative Ur Amphetamines Screen Negative U Methamphetamines Scrn Negative Ur MDMA Scrn (Ecstasy) Negative U Benzodiazepines Scrn Negative Urine Cocaine Screen Negative U Marijuana (THC) Screen Negative SARS-CoV-2 (PCR) 05/02/21 05/02/21 05/03/21 22:00 23:06 04:45 WBC 9.5 RBC 4.33 L Hgb 13.7 Hct 39.6 L MCV 91.3 MCH 31.6 MCHC 34.6 RDW 13.4 Plt Count 152 Neut % (Auto) 82.6 H Lymph % (Auto) 9.1 L [place] % (Auto) 7.7 Eos % (Auto) 0.0 L Baso % (Auto) 0.6 Neut # (Auto) 7800 H Lymph # (Auto) 900 L [place] # (Auto) 700 Eos # (Auto) 0 Baso # (Auto) 100 D-Dimer 803 H Sodium Potassium Chloride Carbon Dioxide BUN Creatinine Estimated GFR BUN/Creatinine Ratio Glucose Lactate Calcium Magnesium Total Bilirubin Conjugated Bilirubin Unconjugated Bilirubin AST ALT Alkaline Phosphatase Total Creatine Kinase CK-MB (CK-2) CK-MB (CK-2) Rel Index Troponin I Total Protein Albumin Globulin Albumin/Globulin Ratio Lipase Procalcitonin Urine Color Urine Appearance Urine pH Ur Specific [place] Urine Protein Urine Glucose (UA) Urine Ketones Urine Occult Blood Urine Nitrate Urine Bilirubin Urine Urobilinogen Ur Leukocyte Esterase Urine RBC Urine WBC Ur Squamous Epith Cells Urine Bacteria Ur Culture Indicated? Micro UA Comment Nasal Screen MRSA (PCR) Negative for mrsa U Opiates 300ng/mL cut Ur Oxycodone Screen Urine Methadone Screen Ur Barbiturates Screen U Tricyclic Antidepress Ur Phencyclidine Scrn Ur Amphetamines Screen U Methamphetamines Scrn Ur MDMA Scrn (Ecstasy) U Benzodiazepines Scrn Urine Cocaine Screen U Marijuana (THC) Screen SARS-CoV-2 (PCR) 05/03/21 04:45 WBC RBC Hgb Hct MCV MCH MCHC RDW Plt Count Neut % (Auto) Lymph % (Auto) [place] % (Auto) Eos % (Auto) Baso % (Auto) Neut # (Auto) Lymph # (Auto) [place] # (Auto) Eos # (Auto) Baso # (Auto) D-Dimer Sodium 136 L Potassium 4.3 Chloride 105 Carbon Dioxide 23 BUN 15 Creatinine 0.82 Estimated GFR > 60.0 BUN/Creatinine Ratio 18.3 Glucose 124 H Lactate Calcium 8.1 L Magnesium 2.1 Total Bilirubin 0.8 Conjugated Bilirubin 0.0 Unconjugated Bilirubin 0.8 AST 51 ALT 45 Alkaline Phosphatase 35 L Total Creatine Kinase CK-MB (CK-2) CK-MB (CK-2) Rel Index Troponin I Total Protein 7.3 Albumin 3.8 Globulin 3.5 Albumin/Globulin Ratio 1.1 Lipase Procalcitonin Urine Color Urine Appearance Urine pH Ur Specific [place] Urine Protein Urine Glucose (UA) Urine Ketones Urine Occult Blood Urine Nitrate Urine Bilirubin Urine Urobilinogen Ur Leukocyte Esterase Urine RBC Urine WBC Ur Squamous Epith Cells Urine Bacteria Ur Culture Indicated? Micro UA Comment Nasal Screen MRSA (PCR) U Opiates 300ng/mL cut Ur Oxycodone Screen Urine Methadone Screen Ur Barbiturates Screen U Tricyclic Antidepress Ur Phencyclidine Scrn Ur Amphetamines Screen U Methamphetamines Scrn Ur MDMA Scrn (Ecstasy) U Benzodiazepines Scrn Urine Cocaine Screen U Marijuana (THC) Screen SARS-CoV-2 (PCR) Exam Vital Signs (past 8 hours): - 05/02/21 23:40 05/02/21 23:45 05/02/21 23:50 Temperature Pulse Rate 65 57 L 55 L Respiratory Rate 22 23 22 Blood Pressure 121/66 Pulse Oximetry 93 97 97 05/03/21 00:00 05/03/21 00:10 05/03/21 00:15 Temperature Pulse Rate 63 68 65 Respiratory Rate 23 24 21 Blood Pressure 128/58 L 123/55 L Pulse Oximetry 96 93 95 05/03/21 00:20 05/03/21 00:30 05/03/21 00:40 Temperature Pulse Rate 64 63 64 Respiratory Rate 21 21 Blood Pressure 127/60 Pulse Oximetry 95 97 96 05/03/21 00:45 05/03/21 00:50 05/03/21 01:00 Temperature Pulse Rate 68 Respiratory Rate 28 H Blood Pressure 133/62 125/59 L Pulse Oximetry 95 05/03/21 01:15 05/03/21 01:40 05/03/21 01:50 Temperature 98.5 F Pulse Rate 66 61 56 L Respiratory Rate 16 23 23 Blood Pressure 140/64 Pulse Oximetry 94 97 99 05/03/21 02:00 05/03/21 02:10 05/03/21 02:20 Temperature Pulse Rate 68 64 64 Respiratory Rate 22 26 H 22 Blood Pressure Pulse Oximetry 97 97 96 05/03/21 02:30 05/03/21 02:40 05/03/21 02:50 Temperature Pulse Rate 61 66 63 Respiratory Rate 20 22 22 Blood Pressure Pulse Oximetry 96 94 93 05/03/21 03:00 05/03/21 03:10 05/03/21 03:20 Temperature Pulse Rate 64 69 64 Respiratory Rate 22 22 21 Blood Pressure Pulse Oximetry 93 89 L 92 05/03/21 03:30 05/03/21 03:40 05/03/21 03:50 Temperature Pulse Rate 63 68 54 L Respiratory Rate 23 35 H 19 Blood Pressure Pulse Oximetry 92 97 95 05/03/21 04:00 05/03/21 04:08 05/03/21 04:09 Temperature Pulse Rate 64 59 L 60 Respiratory Rate 23 18 24 Blood Pressure 90/55 L 89/52 L Pulse Oximetry 94 95 94 05/03/21 04:10 05/03/21 04:16 05/03/21 04:45 Temperature Pulse Rate 59 L 56 L 59 L Respiratory Rate 19 26 H 18 Blood Pressure 104/62 107/45 L Pulse Oximetry 95 97 Oxygen Delivery Method Room Air Oxygen Flow Rate 0 Quality TeleICU VTE Deep Vein Thrombosis/Pulmonary Embolism Present on Admission: No Assessment & Plan Assessment & Plan narrative: Assessment: LLE cellulitis Sepsis-improved h/o of aortic dissection h/o of PE h/o of aortic aneurysm repair Plan -f/u on LE dopplers to rule out DVT -if patient's BP remains stable off pressors can consider transferring out of ICU today -if BP continues to improve and SBP becomes > 130s consider restarting patient's home BP meds at low dose -repeat hemogram to confirm that there is no further drop in hgb -continue Ceftriaxone for now, f/u on blood cultures and adjust antibiotics as needed based on sensitivites -d/c IVF PPX lovenox 40 mg SQ QD CCT spent 40 min Time Spent With Patient Critical Care time: I spent a total of [] minutes of critical care time on this patient's care today; this time is exclusive of procedural time.
[2021-05-03] MEDS: PANTOPRAZOLE DR 40 MG TABLET PO (08:50)
[2021-05-03 09:54] LABS: Hematocrit 38.8 % (41-53); Hemoglobin 13.1 g/dL (13.5-17.5); Mean Corpuscular HGB Conc 33.8 % (30-36); Mean Corpuscular Hemoglobin 31.1 PG (26-34); Platelet Count 144 X10^3/uL (150-400); Red Blood Cell Count 4.22 X10^6/uL (4.5-5.9); Red Cell Distribution Width 13.5 % (11.6-14.8); White Blood Cell Count 7.8 X10^3/uL (4.5-11.0)
--- NOTE | 2021-05-03 13:16 | CM.DANOTE ---
Case received, EMR reviewed and met with patient. Spouse, Damaris, was also at bedside. Introduced self and role. Was able to obtain information regarding patient's baseline activity level at home, and current home situation prior to admission. DCP assessment completed with information currently available. Patient is a 56 year old male who admitted yesterday evening to the care of the hospitalist team. PCP: Dr. Fox in [place]. Payer: confirmed: [employer]. Patient came to the hospital via private vehicle secondary to concerns about an infection on his leg. According to notes, patient had been hiking feeling something sting him in the back of the leg which he thought was a twig or a branch. Patient was concerned secondary to having a history of developing sepsis and being hospitalized at [facility] for the same thing. In the ER, he was initiated on antibiotics and his blood pressure had dropped. After attempting to increase BP with repeated boluses, he was placed on a central line, and needed ketamine for sedation, and sent to ICU on norepinephrine drip. His blood pressure started normalizing, and was taken off of the Levophed drip. Patient was admitted for sepsis in the setting of lower calf cellulitis, acute, and hypotension. Met with patient in his room, he was sitting up in chair, sleepy. Spouse was at bedside. Confirmed that patient and spouse both reside in [place], but are here visiting her mother on [facility]. At patient's baseline, he is independent, has had some prior medical issues as documented. He resides at [facility]. Confirmed that his primary care provider is Dr. Fox in the [place] area. P: DCP to continue to follow. Patient should be able to go home when deemed medically stable. Mary Stout RN/Manager Career Discharge Planning/Care Management CM Discharge Assessment Start: 05/03/21 13:15 Freq: Status: Active Protocol: Document 05/03/21 13:15 (Rec: 05/03/21 13:16 [id number]) Discharge Planning Assessment Assigned Shift Supervisor Film Processing Mary Stout RN/Manager Career Advance Directives? No History Provided By Patient,Significant Other Prior Living Arrangements House Household Members spouse Type of transporation used prior to Drives own vehicle admit Independent with ADL's Yes Is patient alert and oriented? Yes Caregiver for Another No Barriers to Discharge No Transportation Arrangement Spouse Referrals Initiated None needed Whiteboard Updated in Patient Room with Yes name and ext. # of Shift Supervisor [employer] Review Status In Process Next Review Type Continued Stay Review
--- NOTE | 2021-05-03 13:26 | P.PN_ITS ---
Subjective Subjective Date Patient Seen: 05/03/21 Time Patient Seen: 13:26 Interval history: Feels improved since yesterday, still with continued redness and pain of the left lower calf Exam Vital Signs (past 8 hours): - 05/03/21 07:51 Temperature 98.7 F Pulse Rate 59 L Respiratory Rate 19 Blood Pressure 113/70 Oxygen Delivery Method Room Air Oxygen Flow Rate 0 Narrative Exam Narrative: General:? Patient is well developed and well nourished, mildly fatigued appearing but in no distress at this time. HEENT:? Normocephalic, atraumatic, extraocular muscles intact, oral pharynx is clear and mucous membranes are moist. Neck: supple and symmetric, trachea is midline, no cervical adenopathy. Chest:? Normal AP diameter and contour without kyphoscoliosis, no tachypnea, equal chest rise bilaterally. Lungs:? CTA b/l no wheezing rhonchi or rales. Cardio:?RRR no m/r/g. Abdomen: S NT ND. No CVA tenderness. Musculoskeletal:? Muscle strength and tone are equal within normal limits, no deformity. Extremities: No edema or joint effusions. No cyanosis or clubbing. Skin:?right leg circumferential erythema and warmth. 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 Alert and orientated x3,? sensation to touch intact in all extremities, no gross deficits noted of cranial nerves. Psych:? Patient has a well-kept appearance, appropriate affect, mental status attitude thought context and judgment are appropriate for age. Objective Labs Result Diagrams: 05/03/21 09:00 05/03/21 04:45 Labs: Laboratory Results - last 24 hr 05/02/21 05/02/21 05/02/21 14:20 14:20 14:20 WBC 9.5 RBC 4.84 Hgb 15.1 Hct 43.5 MCV 89.8 MCH 31.1 MCHC 34.7 RDW 13.4 Plt Count 174 Neut % (Auto) 82.8 H Lymph % (Auto) 7.3 L [place] % (Auto) 9.3 Eos % (Auto) 0.3 L Baso % (Auto) 0.3 Neut # (Auto) 7900 H Lymph # (Auto) 700 L [place] # (Auto) 900 Eos # (Auto) 0 Baso # (Auto) 0 D-Dimer Sodium 134 L Potassium 4.5 Chloride 101 Carbon Dioxide 25 BUN 15 Creatinine 0.89 Estimated GFR > 60.0 BUN/Creatinine Ratio 16.9 Glucose 104 H Lactate 2.2 H Calcium 9.2 Magnesium Total Bilirubin 0.7 Conjugated Bilirubin Unconjugated Bilirubin AST 50 ALT 45 Alkaline Phosphatase 43 Total Creatine Kinase CK-MB (CK-2) CK-MB (CK-2) Rel Index Troponin I Total Protein 8.5 H Albumin 4.6 Globulin 3.9 Albumin/Globulin Ratio 1.2 Lipase 141 Procalcitonin 0.24 Urine Color Urine Appearance Urine pH Ur Specific [place] Urine Protein Urine Glucose (UA) Urine Ketones Urine Occult Blood Urine Nitrate Urine Bilirubin Urine Urobilinogen Ur Leukocyte Esterase Urine RBC Urine WBC Ur Squamous Epith Cells Urine Bacteria Ur Culture Indicated? Micro UA Comment Nasal Screen MRSA (PCR) U Opiates 300ng/mL cut Ur Oxycodone Screen Urine Methadone Screen Ur Barbiturates Screen U Tricyclic Antidepress Ur Phencyclidine Scrn Ur Amphetamines Screen U Methamphetamines Scrn Ur MDMA Scrn (Ecstasy) U Benzodiazepines Scrn Urine Cocaine Screen U Marijuana (THC) Screen SARS-CoV-2 (PCR) 05/02/21 05/02/21 05/02/21 16:11 16:37 21:03 WBC RBC Hgb Hct MCV MCH MCHC RDW Plt Count Neut % (Auto) Lymph % (Auto) [place] % (Auto) Eos % (Auto) Baso % (Auto) Neut # (Auto) Lymph # (Auto) [place] # (Auto) Eos # (Auto) Baso # (Auto) D-Dimer Sodium Potassium Chloride Carbon Dioxide BUN Creatinine Estimated GFR BUN/Creatinine Ratio Glucose Lactate 1.5 1.2 Calcium Magnesium Total Bilirubin Conjugated Bilirubin Unconjugated Bilirubin AST ALT Alkaline Phosphatase Total Creatine Kinase CK-MB (CK-2) CK-MB (CK-2) Rel Index Troponin I Total Protein Albumin Globulin Albumin/Globulin Ratio Lipase Procalcitonin Urine Color Urine Appearance Urine pH Ur Specific [place] Urine Protein Urine Glucose (UA) Urine Ketones Urine Occult Blood Urine Nitrate Urine Bilirubin Urine Urobilinogen Ur Leukocyte Esterase Urine RBC Urine WBC Ur Squamous Epith Cells Urine Bacteria Ur Culture Indicated? Micro UA Comment Nasal Screen MRSA (PCR) U Opiates 300ng/mL cut Ur Oxycodone Screen Urine Methadone Screen Ur Barbiturates Screen U Tricyclic Antidepress Ur Phencyclidine Scrn Ur Amphetamines Screen U Methamphetamines Scrn Ur MDMA Scrn (Ecstasy) U Benzodiazepines Scrn Urine Cocaine Screen U Marijuana (THC) Screen SARS-CoV-2 (PCR) Negative 05/02/21 05/02/21 05/02/21 21:17 21:17 21:17 WBC RBC Hgb Hct MCV MCH MCHC RDW Plt Count Neut % (Auto) Lymph % (Auto) [place] % (Auto) Eos % (Auto) Baso % (Auto) Neut # (Auto) Lymph # (Auto) [place] # (Auto) Eos # (Auto) Baso # (Auto) D-Dimer Sodium Potassium Chloride Carbon Dioxide BUN Creatinine Estimated GFR BUN/Creatinine Ratio Glucose Lactate Calcium Magnesium Total Bilirubin Conjugated Bilirubin Unconjugated Bilirubin AST ALT Alkaline Phosphatase Total Creatine Kinase 295 H CK-MB (CK-2) 0.74 CK-MB (CK-2) Rel Index 0.3 L Troponin I < 0.012 Total Protein Albumin Globulin Albumin/Globulin Ratio Lipase Procalcitonin Urine Color Yellow Urine Appearance Clear Urine pH 6.5 Ur Specific [place] <=1.005 Urine Protein Negative Urine Glucose (UA) Negative Urine Ketones Negative Urine Occult Blood Negative Urine Nitrate Negative Urine Bilirubin Negative Urine Urobilinogen 0.2 Ur Leukocyte Esterase Negative Urine RBC None seen Urine WBC None seen Ur Squamous Epith Cells 0-1 /hpf Urine Bacteria None seen Ur Culture Indicated? Cult not indicated Micro UA Comment Microscopic normal Nasal Screen MRSA (PCR) U Opiates 300ng/mL cut Negative Ur Oxycodone Screen Negative Urine Methadone Screen Negative Ur Barbiturates Screen Negative U Tricyclic Antidepress Negative Ur Phencyclidine Scrn Negative Ur Amphetamines Screen Negative U Methamphetamines Scrn Negative Ur MDMA Scrn (Ecstasy) Negative U Benzodiazepines Scrn Negative Urine Cocaine Screen Negative U Marijuana (THC) Screen Negative SARS-CoV-2 (PCR) 05/02/21 05/02/21 05/03/21 22:00 23:06 04:45 WBC 9.5 RBC 4.33 L Hgb 13.7 Hct 39.6 L MCV 91.3 MCH 31.6 MCHC 34.6 RDW 13.4 Plt Count 152 Neut % (Auto) 82.6 H Lymph % (Auto) 9.1 L [place] % (Auto) 7.7 Eos % (Auto) 0.0 L Baso % (Auto) 0.6 Neut # (Auto) 7800 H Lymph # (Auto) 900 L [place] # (Auto) 700 Eos # (Auto) 0 Baso # (Auto) 100 D-Dimer 803 H Sodium Potassium Chloride Carbon Dioxide BUN Creatinine Estimated GFR BUN/Creatinine Ratio Glucose Lactate Calcium Magnesium Total Bilirubin Conjugated Bilirubin Unconjugated Bilirubin AST ALT Alkaline Phosphatase Total Creatine Kinase CK-MB (CK-2) CK-MB (CK-2) Rel Index Troponin I Total Protein Albumin Globulin Albumin/Globulin Ratio Lipase Procalcitonin Urine Color Urine Appearance Urine pH Ur Specific [place] Urine Protein Urine Glucose (UA) Urine Ketones Urine Occult Blood Urine Nitrate Urine Bilirubin Urine Urobilinogen Ur Leukocyte Esterase Urine RBC Urine WBC Ur Squamous Epith Cells Urine Bacteria Ur Culture Indicated? Micro UA Comment Nasal Screen MRSA (PCR) Negative for mrsa U Opiates 300ng/mL cut Ur Oxycodone Screen Urine Methadone Screen Ur Barbiturates Screen U Tricyclic Antidepress Ur Phencyclidine Scrn Ur Amphetamines Screen U Methamphetamines Scrn Ur MDMA Scrn (Ecstasy) U Benzodiazepines Scrn Urine Cocaine Screen U Marijuana (THC) Screen SARS-CoV-2 (PCR) 05/03/21 05/03/21 04:45 09:00 WBC 7.8 RBC 4.22 L Hgb 13.1 L Hct 38.8 L MCV 92.0 MCH 31.1 MCHC 33.8 RDW 13.5 Plt Count 144 L Neut % (Auto) Lymph % (Auto) [place] % (Auto) Eos % (Auto) Baso % (Auto) Neut # (Auto) Lymph # (Auto) [place] # (Auto) Eos # (Auto) Baso # (Auto) D-Dimer Sodium 136 L Potassium 4.3 Chloride 105 Carbon Dioxide 23 BUN 15 Creatinine 0.82 Estimated GFR > 60.0 BUN/Creatinine Ratio 18.3 Glucose 124 H Lactate Calcium 8.1 L Magnesium 2.1 Total Bilirubin 0.8 Conjugated Bilirubin 0.0 Unconjugated Bilirubin 0.8 AST 51 ALT 45 Alkaline Phosphatase 35 L Total Creatine Kinase CK-MB (CK-2) CK-MB (CK-2) Rel Index Troponin I Total Protein 7.3 Albumin 3.8 Globulin 3.5 Albumin/Globulin Ratio 1.1 Lipase Procalcitonin Urine Color Urine Appearance Urine pH Ur Specific [place] Urine Protein Urine Glucose (UA) Urine Ketones Urine Occult Blood Urine Nitrate Urine Bilirubin Urine Urobilinogen Ur Leukocyte Esterase Urine RBC Urine WBC Ur Squamous Epith Cells Urine Bacteria Ur Culture Indicated? Micro UA Comment Nasal Screen MRSA (PCR) U Opiates 300ng/mL cut Ur Oxycodone Screen Urine Methadone Screen Ur Barbiturates Screen U Tricyclic Antidepress Ur Phencyclidine Scrn Ur Amphetamines Screen U Methamphetamines Scrn Ur MDMA Scrn (Ecstasy) U Benzodiazepines Scrn Urine Cocaine Screen U Marijuana (THC) Screen SARS-CoV-2 (PCR) [facility] Medical History (Updated 05/03/21 @ 04:22 by ANJALI Kenney) Abdominal aortic aneurysm Aortic dissection Essential hypertension History of pulmonary embolism Low HDL (under 40) Morbid obesity with BMI of 40.0-44.9, adult Surgical History (Updated 05/03/21 @ 04:22 by ANJALI Kenney) History of abdominal aortic aneurysm repair Family History (Updated 05/03/21 @ 04:27 by ANJALI Kenney) Mother Pancreatic cancer Father Vascular disease Son PTSD (post-traumatic stress disorder) Social History household members: spouse Assessment & Plan Assessment & Plan narrative: Robert Cooper is a 56-year-old morbidly obese male with some significant cardiac risk factors is admitted for sepsis associated with a left lower calf cellulitis. 1. Sepsis with septic shock in the setting of Left lower calf cellulitis, acute, present on admission * continue ceftriaxone, pending cultures. MRSA swab negative and vancomycin discontinued. * Appears stable but overall condition is improving given improvement in hypotension. * ultrasound negative for DVT * if no significant improvement in appearance consider CT imaging to rule out small collection. * was briefly on nor-epinephrine infusion, now BP improved. * stable for floor today. 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 3. History of MRSA * His PCR swab is negative and vancomycin is now discontinued 4. Essential hypertension, chronic * continue holding home lisinopril unless hypertensive given presentation. 5. History of bilateral PE * D-dimer was 802, possible DVT ruled out with US study. I spent 30 minutes providing critical care management this patient. This excludes time spent in performing separately billed procedures. VTE Prophylaxis: Enoxaparin Dispo:? Probable discharge to home, timing unclear. stable for floor. Code status:? Full code as discussed with the patient who identifies his , Damaris his surrogate and POA. Time Spent With Patient Critical Care time: I spent a total of [] minutes of critical care time on this patient's care today; this time is exclusive of procedural time. Quality VTE Deep Vein Thrombosis/Pulmonary Embolism Present on Admission: No
[2021-05-03] MEDS: LACTATED RINGERS 1,000 ML 75 ML IV (15:45)
[2021-05-03] MEDS: cefTRIAXone 1,000 MG in SODIUM CHLORIDE 0.9% 100 ML 200 ML IV (21:12)
[2021-05-03] MEDS: ENOXAPARIN 40 MG/0.4 ML SYRINGE SUBCUT (21:13)
[2021-05-03] MEDS: TRAMADOL 50 MG TABLET PO (23:05)
[2021-05-04] VITALS (9 sets, daily range): BP systolic 118–138; BP diastolic 68–84; PULSE 52–67; RESP 16–20; TEMP 36.4–37.4; O2SAT 95–97
[2021-05-04] MEDS: TRAMADOL 50 MG TABLET PO ×4 (05:38→23:39)
[2021-05-04 06:04] LABS: Add Manual Diff / Slide Review NO; Basophils Absolute Auto 0 /uL (0-100); Basophils Percent Auto 0.6 % (0-2); Eosinophils Absolute Auto 100 /uL (0-450); Eosinophils Percent Auto 1.2 % (2-4); Hematocrit 37.3 % (41-53); Hemoglobin 12.7 g/dL (13.5-17.5); Lymphocytes Absolute Auto 1600 /uL (1100-4500); Lymphocytes Percent Auto 25.7 % (25-40); Mean Corpuscular HGB Conc 34.1 % (30-36); Mean Corpuscular Hemoglobin 31.3 PG (26-34); Mean Corpuscular Volume 91.7 fL (80-100); Monocytes Absolute Auto 800 /uL (0-900); Monocytes Percent Auto 12.7 % (3-14); Neutrophils Absolute Auto 3800 /uL (1500-7000); Neutrophils Percent Auto 59.8 % (50-75); Platelet Count 130 X10^3/uL (150-400); Red Blood Cell Count 4.07 X10^6/uL (4.5-5.9); Red Cell Distribution Width 13.5 % (11.6-14.8); White Blood Cell Count 6.3 X10^3/uL (4.5-11.0)
[2021-05-04 06:10] LABS: Alanine Aminotransferase 41 IU/L (<50); Albumin 3.6 g/dL (3.5-5.0); Albumin Globulin Ratio 1.1 (1.0-2.8); Alkaline Phosphatase 34 U/L (38-126); Aspartate Aminotransferase 37 IU/L (17-59); BUN Creatinine Ratio 15.6 (6-22); Bilirubin Total 0.4 mg/dL (0.2-1.3); Bilirubin Unconjugated 0.4 mg/dL (0.0-1.1); Blood Urea Nitrogen 12 mg/dL (9-20); Calcium 8.1 mg/dL (8.4-10.2); Carbon Dioxide 25 mmol/L (22-32); Chloride 106 mmol/L (98-107); Estimated Glomerular Filt Rate > 60.0 mL/min (>60); Globulin 3.2 g/dL (1.7-4.1); Glucose 105 mg/dL (70-100); HEMOLYSIS 15 (0-50); Magnesium 2.2 mg/dL (1.6-2.3); Sodium 135 mmol/L (137-145); Total Protein 6.8 g/dL (6.3-8.2)
[2021-05-04] MEDS: PANTOPRAZOLE DR 40 MG TABLET PO (06:24)
[2021-05-04] MEDS: ACETAMINOPHEN 325 MG TABLET 650 MG PO ×4 (06:28→23:39)
--- NOTE | 2021-05-04 06:59 | PC.NURSE ---
Patients redness to L inner thigh improving, Left calf remains reddish brown and swollen. Medicated with Tramadol and Acetaminophen. Pain rated at 6/10. Independent in room. Had some diaphoresis during the night, and able to get OOB to sink with a face and self arnaldo care wash. Gown and partial linen change. Temp 99.4 down to 98,6. BP stable throughout night.
[2021-05-04] MEDS: VANCOMYCIN 1,500 MG/300 ML PIGGYBACK 200 MG IV ×3 (08:05→23:40)
[2021-05-04] MEDS: LACTATED RINGERS 1,000 ML 75 ML IV (08:05)
--- NOTE | 2021-05-04 08:27 | P.PN_ITS ---
Subjective Subjective Date Patient Seen: 05/04/21 Time Patient Seen: 08:27 Interval history: Had severe pain this morning but responsive to medication today. Denies fever, nausea, vomiting. He is tolerating a diet and eating breakfast this morning. Redness appears improved. Yesterday BP was soft when IVF was stopped, resumed IVF overnight, now normotensive again. Exam Vital Signs (past 8 hours): - 05/04/21 02:55 Temperature 98.6 F Pulse Rate 62 Respiratory Rate 20 Blood Pressure 122/71 Pulse Oximetry 95 Oxygen Delivery Method Room Air Oxygen Flow Rate 0 Narrative Exam Narrative: General:? Patient is well developed and well nourished, in no distress at this time. Neck: R IJ central line in place, no erythema or induration, dressing is clear and dry. Cardio:?RRR Pulm: no tachypnea, no accessory muscle use. Musculoskeletal:? Muscle strength and tone are equal within normal limits, no deformity. Extremities: No edema or joint effusions. No cyanosis or clubbing. Skin:?left leg circumferential erythema and warmth, improved today. Streaking noted yesterday on outer thigh on the right also improved. R leg with venous stasis changes. Neuro:? Alert and orientated x3,? sensation to touch intact in all extremities, no gross deficits noted of cranial nerves. Psych:? Patient has a well-kept appearance, appropriate affect, mental status attitude thought context and judgment are appropriate for age. Objective Labs Result Diagrams: 05/04/21 05:45 05/04/21 05:45 Labs: Laboratory Results - last 24 hr 05/03/21 05/04/21 05/04/21 09:00 05:45 05:45 WBC 7.8 6.3 RBC 4.22 L 4.07 L Hgb 13.1 L 12.7 L Hct 38.8 L 37.3 L MCV 92.0 91.7 MCH 31.1 31.3 MCHC 33.8 34.1 RDW 13.5 13.5 Plt Count 144 L 130 L Neut % (Auto) 59.8 D Lymph % (Auto) 25.7 [place] % (Auto) 12.7 Eos % (Auto) 1.2 L Baso % (Auto) 0.6 Neut # (Auto) 3800 Lymph # (Auto) 1600 [place] # (Auto) 800 Eos # (Auto) 100 Baso # (Auto) 0 Sodium 135 L Potassium 4.0 Chloride 106 Carbon Dioxide 25 BUN 12 Creatinine 0.77 Estimated GFR > 60.0 BUN/Creatinine Ratio 15.6 Glucose 105 H Calcium 8.1 L Magnesium 2.2 Total Bilirubin 0.4 Conjugated Bilirubin 0.0 Unconjugated Bilirubin 0.4 AST 37 ALT 41 Alkaline Phosphatase 34 L Total Protein 6.8 Albumin 3.6 Globulin 3.2 Albumin/Globulin Ratio 1.1 [facility] Medical History (Updated 05/03/21 @ 04:22 by ANJALI Kenney) Abdominal aortic aneurysm Aortic dissection Essential hypertension History of pulmonary embolism Low HDL (under 40) Morbid obesity with BMI of 40.0-44.9, adult Surgical History (Updated 05/03/21 @ 04:22 by ANJALI Kenney) History of abdominal aortic aneurysm repair Family History (Updated 05/03/21 @ 04:27 by ANJALI Kenney) Mother Pancreatic cancer Father Vascular disease Son PTSD (post-traumatic stress disorder) Social History household members: spouse Assessment & Plan Assessment & Plan narrative: Robert Cooper is a 56-year-old morbidly obese male admitted for sepsis a ssociated with a left lower calf cellulitis. 1. Sepsis with septic shock in the setting of Left lower calf cellulitis, acute, present on admission * continue ceftriaxone and vancomycin given degree of infection on admission, cultures negative thus far. * ultrasound negative for DVT * consider additional imaging only if worsening appearance. * was briefly on nor-epinephrine infusion, BP improved but remained soft after discontinuation, improved again with additional IV fluids given overnight. * discontinue IVF today, restart if BP drops again. 2. Essential hypertension, chronic * continue holding home lisinopril unless hypertensive given presentation. 3. History of bilateral PE * D-dimer was 802, possible DVT ruled out with US study 4. Obesity with BMI 46.6 - obesity contributes towards his venous insufficiency and risk of cellulitis. VTE Prophylaxis: Enoxaparin Dispo:? Probable discharge to home, timing likely 1-2 days if cellulitis continues to improve. Code status:? Full code as discussed with the patient who identifies his , Damaris his surrogate and POA. Time Spent With Patient Critical Care time: I spent a total of [] minutes of critical care time on this patient's care today; this time is exclusive of procedural time. Quality VTE Deep Vein Thrombosis/Pulmonary Embolism Present on Admission: No
[2021-05-04 16:20] LABS: Vancomycin Trough 10.9 ug/mL (10-20)
[2021-05-04 20:13] LABS: Vancomycin Peak 22.6 ug/mL (20-40)
[2021-05-04] MEDS: cefTRIAXone 1,000 MG in SODIUM CHLORIDE 0.9% 100 ML 200 ML IV (20:47)
[2021-05-04] MEDS: ENOXAPARIN 40 MG/0.4 ML SYRINGE SUBCUT (20:48)
[2021-05-05 04:33] LABS: Add Manual Diff / Slide Review NO; Basophils Absolute Auto 0 /uL (0-100); Basophils Percent Auto 0.7 % (0-2); Eosinophils Absolute Auto 100 /uL (0-450); Eosinophils Percent Auto 2.5 % (2-4); Hemoglobin 12.8 g/dL (13.5-17.5); Lymphocytes Absolute Auto 1700 /uL (1100-4500); Lymphocytes Percent Auto 31.8 % (25-40); Mean Corpuscular HGB Conc 34.5 % (30-36); Mean Corpuscular Hemoglobin 31.4 PG (26-34); Mean Corpuscular Volume 91.2 fL (80-100); Monocytes Absolute Auto 700 /uL (0-900); Neutrophils Absolute Auto 2700 /uL (1500-7000); Platelet Count 139 X10^3/uL (150-400); Red Blood Cell Count 4.06 X10^6/uL (4.5-5.9); Red Cell Distribution Width 13.4 % (11.6-14.8); White Blood Cell Count 5.2 X10^3/uL (4.5-11.0)
[2021-05-05 04:34] VITALS: BP 137/77; PULSE 59; RESP 18; TEMP 36.6; O2SAT 97
[2021-05-05 04:49] LABS: Alanine Aminotransferase 38 IU/L (<50); Albumin 3.7 g/dL (3.5-5.0); Albumin Globulin Ratio 1.2 (1.0-2.8); Alkaline Phosphatase 35 U/L (38-126); Aspartate Aminotransferase 39 IU/L (17-59); BUN Creatinine Ratio 14.6 (6-22); Bilirubin Total 0.5 mg/dL (0.2-1.3); Bilirubin Unconjugated 0.5 mg/dL (0.0-1.1); Blood Urea Nitrogen 12 mg/dL (9-20); Calcium 8.1 mg/dL (8.4-10.2); Carbon Dioxide 24 mmol/L (22-32); Chloride 105 mmol/L (98-107); Estimated Glomerular Filt Rate > 60.0 mL/min (>60); Globulin 3.2 g/dL (1.7-4.1); Glucose 93 mg/dL (70-100); HEMOLYSIS < 15 (0-50); Magnesium 2.2 mg/dL (1.6-2.3); Sodium 135 mmol/L (137-145); Total Protein 6.9 g/dL (6.3-8.2)
[2021-05-05] MEDS: ACETAMINOPHEN 325 MG TABLET 650 MG PO ×2 (05:49→13:31)
[2021-05-05] MEDS: PANTOPRAZOLE DR 40 MG TABLET PO (05:50)
[2021-05-05] MEDS: TRAMADOL 50 MG TABLET PO ×2 (05:50→13:30)
[2021-05-05 08:00] VITALS: BP 143/89; PULSE 52; RESP 20; TEMP 36.6; O2SAT 96
[2021-05-05] MEDS: VANCOMYCIN 1,500 MG/300 ML PIGGYBACK 200 MG IV (08:21)
[2021-05-05] MEDS: LINEZOLID 600 MG TABLET PO (10:41)
[2021-05-05 11:41] VITALS: O2SAT 96
[2021-05-05 12:00] VITALS: BP 130/82; PULSE 57; RESP 21; TEMP 36.8; O2SAT 98
--- NOTE | 2021-05-06 21:43 | P.DS_ITS ---
History of Present Illness History of Present Illness Date Patient Seen: 05/05/21 Time Patient Seen: 08:00 Chief complaint: infection Narrative: Per ANJALI Kenney: Terrance Cooper is a 56 y.o. male visiting from [place] who developed lower left leg pain and redness in that area.? He states he was out hiking around and felt something sting him in the back of the leg that he felt might have been a piece of twig or branch.? The patient is concerned because he has a history of developing sepsis and being hospitalized at [facility] in February of this year and being treated for the same thing.? 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 He denies fever sweats or chills though per the ED was taking Tylenol for aches and pains, he did endorse having chills today, denies shortness of breath, chest pain, nausea or vomiting, dysuria, diarrhea constipation. In the emergency department the patient was initiated on antibiotics and during that time his blood pressure dropped precipitously low.? After repeated boluses a decision was made to place a central line into the patient and required ketamine for sedation. He was eventually put on a norepinephrine drip and admitted to the ICU.? About mid evening the patient was taken off the Levophed drip due to his blood pressure normalizing.? X-ray was negative for any acute cardiopulmonary process. x-ray of the tib him did not identify any fractures, dislocations, soft tissue masses or abscesses or evidence of acute osteomyelitis.? Repeat chest x-ray to verify central line was negative for any pneumothorax or abnormalities. Patient's T-max was 103?.? Blood pressure is currently 140/64, heart rate 61, respiratory rate 23, oxygen saturation of 97% on room air, he weighs 140 kg with a BMI of 43.5.? Does not have white count, D- dimer is mildly elevated at 803 however hit falls within the range of a possible DVT sodium 134, glucose 104, total CK was 295, is a normal troponin, procalcitonin was 0.24, UA was negative for UTI, MRSA is negative, and COVID-19 PCR is negative. Discharge Providers Provider Date of admission: 05/02/21 21:12 Discharge Date: 05/05/21 Consults: 05/02/21 21:54 Consult to Tele-pediatric psychiatrist Routine Comment: Consulting Provider: Елена [employer]iv[employer] Reason for consultation: Doctor Of Nurse Anesthesia Practice services Has provider been notified: Yes 05/02/21 22:26 Consult to District Wildlife Manager Routine Comment: Discharge provider: William Hurtado DO Summary Hospital Course Discharge Diagnosis: 1. Sepsis with septic shock in the setting of Left lower calf cellulitis, acute, present on admission 2. Essential hypertension, chronic 3. History of bilateral PE 4. Obesity with BMI 46.6 Hospital Course: This is a 56 year old male with PMH of HTN, b/l PE, obesity who was admitted with septic shock in the setting of left lower extremity cellulitis. Initial ultrasound was negative for DVT. He was briefly on levophed infusion on admission, but was quickly weaned off with fluid and antibiotics. He was continued on ceftriaxone and vancomycin initially. Blood pressures remained soft and it took a few days for this to improve, as did his cellulitis. His home lisinopril was held but can be resumed on discharge. On the day of discharge, his pain and redness had improved. Patient was discharged on oral Linezolid for an additional 10 day given his venous stasis disease. His obesity leads to venous stasis, lymphedema and increases risk of cellulitis. Time Spent with Patient Time spent: Greater than 30 minutes Exam Vital Signs (past 8 hours): Oxygen Delivery Method Room Air Oxygen Flow Rate 0 Narrative Exam Narrative: General:? Patient is well developed and well nourished, in no distress at this time. Neck: R IJ central line in place (removed before discharge), no erythema or induration, dressing is clear and dry. Cardio:?RRR, no m/r/g. Pulm: no tachypnea, no accessory muscle use. Musculoskeletal:? Muscle strength and tone are equal within normal limits, no deformity. Extremities: No edema or joint effusions. No cyanosis or clubbing. Skin:?left leg circumferential erythema and warmth, nearly resolved today. Streaking noted yesterday on outer thigh on the right now resolved. Neuro:? Alert and orientated x3,? sensation to touch intact in all extremities, no gross deficits noted of cranial nerves. Psych:? Patient has a well-kept appearance, appropriate affect, mental status attitude thought context and judgment are appropriate for age. Objective Labs Result Diagrams: 05/05/21 04:15 05/05/21 04:15 [facility] Medical History (Updated 05/03/21 @ 04:22 by ANJALI Kenney) Abdominal aortic aneurysm Aortic dissection Essential hypertension History of pulmonary embolism Low HDL (under 40) Morbid obesity with BMI of 40.0-44.9, adult Surgical History (Updated 05/03/21 @ 04:22 by ANJALI Kenney) History of abdominal aortic aneurysm repair Family History (Updated 05/03/21 @ 04:27 by ANJALI Kenney) Mother Pancreatic cancer Father Vascular disease Son PTSD (post-traumatic stress disorder) Social History household members: spouse Discharge Plan Discharge Plan Patient Disposition: Home Provider Discharge Comment: You were admitted to the hospital with sepsis and shock due to right leg cellulitis. Improved with antibiotics. Will discharge home on linezolid. Follow up with PCP in 1 week for blood count check on [place] ezolid. Discharge orders & Medications Prescriptions: New tramadol 50 mg Tablet 50 mg PO Q4H PRN (Reason: Pain, Moderate (4-6)) 7 Days Qty: 30 0RF linezolid 600 mg tablet 600 mg PO Q12H 14 Days Qty: 28 0RF Continued lisinopril 20 mg tablet 20 mg PO DAILY 0RF Diet/Activity/Treatments Diet: Diet as Tolerated Activity: As tolerated Visit Report/Discharge Packet Instructions: DI for Cellulitis -- Adult Quality VTE Deep Vein Thrombosis/Pulmonary Embolism Present on Admission: No
== END 2021-05-05 14:43 | disposition home or self-care (01) | DRG 871 ==
LOC: ED 20:52 → ICU 05-03 10:56 → AC 05-03 13:23 → ICU 05-03 14:29
PROVIDERS: Emergency Medicine; Internal Medicine; Physician Assistant; Admitting Provider Nurse Practitioner Family; Emergency Provider Emergency Medicine; Referring Provider Emergency Medicine; Visit Provider Nurse Practitioner Family
DX: A41.9 Sepsis, unspecified organism (principal); R65.21 Severe sepsis with septic shock; L03.116 Cellulitis of left lower limb; Z68.42 Body mass index [BMI] 45.0-49.9, adult; E66.01 Morbid (severe) obesity due to excess calories; Z86.711 Personal history of pulmonary embolism; I10 Essential (primary) hypertension; Z20.822 Contact with and (suspected) exposure to COVID-19; Z86.14 Personal history of Methicillin resistant Staphylococcus aureus infection
CPT/HCPCS: 36415; 36569; 36592; 71045; 73590; 80048; 80053; 80076; 80202; 80305; 81001; 81003; 82550; 82553; 83605; 83690; 83735; 84145; 84484; 85025; 85027; 85379; 87040; 87635; 87797; 93005; 93970; 94760; 94762; 96361; 96365; 96375; 99152; 99285; C9803; J0696; J1642; J1650; J2405